=== PATIENT | male | born 1940 | race Caucasian/White ===

== ENCOUNTER 2017-12-02 07:25 | Inpatient (IN) ==
[2017-12-02] MEDS ORDERED: Chlorhexidine Gluconate 2% 1 Pack (2 Cloths) TOPICAL ONE (08:00)
[2017-12-02] MEDS ORDERED: Metoprolol Tartrate 25 MG Tablet PO ONE (08:00)
[2017-12-02] MEDS ORDERED: Sodium Chlor 0.9% Inj 500 ML IV.SIG SCH (08:00)
[2017-12-02] MEDS ORDERED: Chlorhexidine Gluconate 2% 1 Pack (2 Cloths) TOPICAL SCH (08:15)
[2017-12-02] MEDS ORDERED: Mupirocin 2% Nasal Oint Topical Syringe EACH NARE SCH (08:15)
[2017-12-02] MEDS ORDERED: Sod Chloride 0.9% Inj 1,000 ML IV.CONT SCH (08:15)
[2017-12-02] MEDS ORDERED: Aspirin 325 MG Tablet PO SCH (08:15)
[2017-12-02 08:57] LABS: Baso % (Auto) 0.7 % (0.0-2.0); Eos # (Auto) 0.4 th/mm3 (0.0-0.4); Eos % (Auto) 6.1 % (0.0-4.0); Hematocrit 36.1 % (39.0-51.0); Hemoglobin 12.3 gm/dL (13.0-17.0); Lymph # (Auto) 1.2 th/mm3 (1.0-4.8); Lymph % (Auto) 18.2 % (9.0-44.0); Mean Corpuscular Hemoglobin 30.7 pg (27.0-34.0); Mean Corpuscular Volume 90.3 fL (80.0-100.0); Mean Platelet Volume 7.5 fL (7.0-11.0); Mono # (Auto) 0.4 th/mm3 (0.0-0.9); Mono % (Auto) 5.6 % (0.0-8.0); Neut # (Auto) 4.5 th/mm3 (1.8-7.7); Neut % (Auto) 69.4 % (16.0-70.0); Platelet Count 255 th/mm3 (150-450); Red Cell Distribution Width 13.6 % (11.6-17.2); White Blood Count 6.5 th/mm3 (4.0-11.0)
[2017-12-02 09:07] LABS: Activated Partial Thrombo Time 22.6 sec (24.3-30.1); Prothrombin Time 10.6 sec (9.8-11.6)
[2017-12-02 09:18] LABS: Calcium 8.3 mg/dL (8.5-10.1); Carbon Dioxide 22.3 meq/L (21.0-32.0); Potassium 3.9 meq/L (3.5-5.1)
[2017-12-02] MEDS ORDERED: Iohexol 350 MG/ML 100 ML Vial (for Cath Lab) IVCONTRAST ONE (09:46)
[2017-12-02] MEDS ORDERED: Iohexol 350 MG/ML 50 ML Vial (for Cath Lab) IVCONTRAST ONE (09:46)
--- NOTE | 2017-12-02 10:22 | P.PNCV ---
- Note Subjective/Hospital Course: 77/ male seen by both Dr Montelongo and Dr Lazaro as an outpt , who presented with > 6 month symptoms of progressive dyspnea with minimal exertion. Echo revealed moderate to severe with mild LV dysfunction. Cardiac cath demonstrated multivessel disease affecting LAD territory , where he underwent PCI with VALENTINA x 2 , pt was also found to have sinus bradycardia with long WA interval with left anterior fascicular block with RBBB. He then underwent EP study by Dr Lyons . Due to pt fragility and significant medical comorbidities, he was recommended for TAVR procedure IMPLANTED HARDWARE 11/23 The permanent pacemaker is a St ever. Model # MS2306, serial number [id number]. The right atrial pacing and sensing lead is a St Ever model number 2088TC-52, serial number [id number]. The right ventricular pacing and sensing lead is a St Ever model number 2088TC- 58, serial number [id number]. PMH: DM, , HLP. 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 Differential Comment Auto diff final PT 10.6 INR 1.0 APTT 22.6 L Sodium 140 Potassium 3.9 Chloride 109 H Carbon Dioxide 22.3 Anion Gap 9 BUN 21 H Creatinine 1.37 H Estimated GFR 50 L Random Glucose 158 H Calcium 8.3 L Blood Type Antibody Screen MTS Gel Crossmatch 12/02/17 08:30 WBC RBC Hgb Hct MCV MCH MCHC RDW Plt Count MPV Neut % (Auto) Lymph % (Auto) [place] % (Auto) Eos % (Auto) Baso % (Auto) Neut # (Auto) Lymph # (Auto) [place] # (Auto) Eos # (Auto) Baso # (Auto) WBC Differential Differential Comment PT INR APTT Sodium Potassium Chloride Carbon Dioxide Anion Gap BUN Creatinine Estimated GFR Random Glucose Calcium Blood Type O Negative Antibody Screen Negative MTS Gel Crossmatch See Detail Result Diagrams: 12/02/17 08:15 12/02/17 08:15
[2017-12-02] MEDS ORDERED: Lidocaine PF 1% Inj 5 ML Syringe OTHER ONE (11:28)
[2017-12-02] MEDS ORDERED: Glycopyrrolate Inj 1 MG/5 ML Syringe IV.PUSH ONE (11:28)
[2017-12-02] MEDS ORDERED: Phenylephrine/NS 1000 MCG/10ML Syringe IV.PUSH ONE (11:28)
[2017-12-02] MEDS ORDERED: Neostigmine Inj 5 MG/5 ML Syringe IV.PUSH ONE (11:28)
[2017-12-02] MEDS ORDERED: Sodium Chlor 0.9% Inj 100 ML IV.CONT ONE (11:28)
[2017-12-02] MEDS ORDERED: Sodium Chlor 0.9% Inj 250 ML IV.CONT ONE (11:28)
[2017-12-02] MEDS ORDERED: Lidocaine 2% 100 MG/5 ML Syringe IV.PUSH ONE (11:28)
[2017-12-02] MEDS: ceFAZolin 2 GM Premix Inj 2 GM/50 ML PIGGYBACK IV.SIG SCH ×2 (11:35→12:31)
[2017-12-02] MEDS ORDERED: Iohexol 300 MG/ML 50 ML Vial (for Rad Diag) IVCONTRAST ONE ×2 (13:14→14:45)
[2017-12-02] MEDS ORDERED: Atropine Inj 1 MG/ML Vial IV.PUSH PRN (13:16)
[2017-12-02] MEDS ORDERED: Acetaminophen 325 MG Tablet PO PRN (13:16)
[2017-12-02] MEDS ORDERED: Morphine Sulfate Inj 2 MG/ML Vial IV.PUSH PRN (13:16)
[2017-12-02] MEDS ORDERED: Benzocaine/Menthol 15 MG/3.6 MG SF Lozenge BUCCAL PRN (13:16)
--- NOTE | 2017-12-02 13:29 | P.OP ---
Date of procedure: 12/02/17 Anesthesia: GETA Surgeon: Jules Lazaro MD Operation and Findings: PREOPERATIVE DIAGNOSIS: 1. Severe Symptomatic Aortic stenosis. 2. CHF 3. Mild aortic Insufficiency POSTOPERATIVE DIAGNOSIS: Same OPERATION PERFORMED: 1. Transcatheter Aortic Valve Replacement (TAVR) with an Monroy 29 mm Tamiko 3 Tissue Valve. 2. Balloon Aortic Valvuloplasty 3. Aortogram. 4. Percutaneous left femoral Vein Access and Bilateral Common Femoral Artery Access 5. Perclose closure of right Common Femoral artery. 6. Vascade closure of left Common Femoral artery and vein. 7. Fluoroscopy SURGEON: Jules Lazaro MD CO-SURGEON: Blayne Petit MD CENTRAL OFFICE REPAIRER SUPERVISOR SURGEON: Noé Green MD GROMMET MACHINE OPERATOR: MARINA Colvin MD ANESTHESIA: GETA PROCEDURE: The risks, benefits, complications, treatment options, and expected outcomes were discussed with the patient. The possibilities of reaction to medication, pulmonary aspiration, perforation of viscus, bleeding, recurrent infection, the need for additional procedures, failure to diagnose a condition, and creating a complication requiring transfusion or operation were discussed with the patient. The patient concurred with the proposed plan, giving informed consent. The site of surgery properly noted/marked. The patient was taken to the hybrid operating room and the procedure verified as Transcatheter Aortic Valve Replacement. A Time Out was held and the above information confirmed. Standard monitoring lines and Tyler catheter were placed. General anesthesia was induced. The patient was prepped and draped in a sterile fashion. Initially, the left femoral arterial and venous access was acquired using a Seldinger percutaneous technique. The details of this procedure were dictated under separate note by cardiology. Once a pigtail was positioned in the aortic annulus and a temporary transvenous pacemaker wire was placed in the right ventricular apex and tested, the right femoral artery was accessed using a needle followed by a guidewire under fluoroscopic guidance. The patient was heparinized and Perclose devices deployed for later closure. Serial dilators were used to dilate the left femoral artery to 16 [place] caliber. The Monroy sheath was then inserted into the external iliac artery up to the distal abdominal aorta. Arch aortography was performed to define the implant view. A balloon aortic valvuloplasty was then performed using a 25 x 4 balloon with rapid pacing. A 29 Monroy Tamiko 3 transcatheter aortic valve was then positioned in the annulus and deployed with the patient being rapidly paced. Following deployment, the valve apparatus was withdrawn and arch aortography and ELISE were performed to assess the valve. The valve had no perivalvular leak. Gradients were then measured and the sheath was removed while securing the Perclose sutures for hemostasis. Protamine was administered. The left arterial and Venous access sites were closed using the Vascade device. Sterile dressings were placed. At the end of the operation, all sponge, instruments, and needle counts were correct. The patient was transferred to the CVICU in stable condition. Findings: No PVL Implants: 29 Tamiko 3 tissue valve Complications: None Disposition: to CVICU in stable condition
--- NOTE | 2017-12-02 13:29 | P.HPCA ---
History of Present Illness Primary Care Physician: No Primary Care Physician History of Present Illness: This is a 77-year-old male with past medical history of diabetes mellitus, hypertension, hyperlipidemia, and coronary artery disease. Patient states he has had symptoms of progressive dyspnea over the course of the last 6 months. Patient underwent diagnostic coronary angiography with percutaneous coronary intervention using drug-eluting stent to the left anterior descending coronary artery. Transthoracic echocardiogram revealed severe aortic valve stenosis. Patient was referred for consideration of surgical aortic valve replacement but felt to be high surgical risk. Patient was referred for transcatheter aortic valve replacement. Patient is now admitted for elective procedure. - Diagnosis (1) Severe aortic valve stenosis (2) Status post transcatheter aortic valve replacement (TAVR) using bioprosthesis (3) Acute on chronic diastolic (congestive) heart failure Inpatient Certification: I certify that the inpatient services were ordered in accordance with Medicare regulations governing the order. This includes certification that hospital inpatient services are reasonable and necessary and in the case of services not specified as inpatient-only under 42 CFR 419.22(n), that they are appropriately provided as inpatient services in accordance to with the 2-midnight benchmark under 43 CFR 412.3(e) Estimated Total Length of Stay (Days): 2 Plans for Post Hospital Care: Home Review of Systems All other systems reviewed negative except as stated in HPI PMFSH - History History Provided By: Patient - Medical History Medical History: Medical History (Last Updated 12/02/17 @ 13:21 by Blayne Petit MD) Chronic diastolic (congestive) heart failure Diabetes Severe aortic valve stenosis CAD (coronary artery disease) CHF (congestive heart failure) COPD (chronic obstructive pulmonary disease) Dyslipidemia HTN (hypertension) Hypothyroid SOB (shortness of breath) - Surgical History Surgical History: Surgical History (Last Updated 12/02/17 @ 08:26 by Janna Sánchez) Stented coronary artery - Tobacco History Second Hand Smoke Exposure: No Smoking Status: Never smoker - Alcohol History How Often Do You Have a Drink Containing Alcohol: Never - Substance Use History Substance History: No History of Abuse Medications and Allergies Active Medications: Active Medications Acetaminophen (Tylenol) 650 mg PO Q4H PRN PRN Reason: PAIN SCALE 1 TO 2 Stop: 12/03/17 13:15 Aspirin (Aspirin) 325 mg PO BIOMETRICIAN [facility] Stop: 12/05/17 08:06 Last Admin: 12/02/17 08:38 Dose: 325 mg Aspirin (Aspirin Chew) 81 mg PO DAILY [facility] Atropine Sulfate (Atropine Inj) 0.5 mg IV.PUSH UNSCH PRN PRN Reason: VAGAL REPONSE Stop: 12/03/17 13:15 Benzocaine/Menthol (Cepacol Max Strength) 1 lozenge BUCCAL Q3H PRN PRN Reason: SORE THROAT Stop: 12/03/17 13:15 Chlorhexidine Gluconate (Chlorhexidine 2% Cloth) 3 pack TOPICAL BIOMETRICIAN [facility] Stop: 12/05/17 08:06 Clopidogrel Bisulfate (Plavix) 600 mg PO ONCE ONE Stop: 12/02/17 13:17 Clopidogrel Bisulfate (Plavix) 75 mg PO DAILY [facility] Ferrous Sulfate (Ferosul) 325 mg PO DAILY [facility] Furosemide (Lasix Inj) 20 mg IV.PUSH ONCE ONE Stop: 12/02/17 13:17 Lactated Ringer's (Lr 1000 Ml Inj) 1,000 mls @ 30 mls/hr IV.SIG .Q24H [facility] Stop: 12/03/17 07:59 Sodium Chloride (Ns Inj) 500 mls @ 30 mls/hr IV.SIG .Q10H [facility] Cefazolin Sodium/Dextrose (Ancef 2 Gm Premix Inj) 2 gm in 50 mls @ 100 mls/hr IV.SIG ONCE [facility] Stop: 12/05/17 08:06 Last Infusion: 12/02/17 11:36 Dose: Infused Sodium Chloride (Ns Inj) 1,000 mls @ 125 mls/hr IV.CONT .Q8H [facility] Iohexol (Omnipaque 300 Inj (Rad Diag)) 120 ml IVCONTRAST ONCE ONE Stop: 12/02/17 13:15 Miscellaneous Information (Misc Information) 0 each OTHER STAT STA Stop: 12/02/17 13:17 Morphine Sulfate (Morphine Inj) 2 mg IV.PUSH Q30M PRN PRN Reason: BREAKTHROUGH PAIN Mupirocin (Bactroban 2% Nasal Oint) 1 applicatio EACH NARE BIOMETRICIAN [facility] Stop: 12/05/17 08:06 Oxycodone/Acetaminophen (Percocet 5/325 Mg) 1 tab PO Q6H PRN PRN Reason: PAIN SCALE 3 TO 5 Povidone Iodine (Betadine 5% Antisepsis Kit) 1 applicatio TOPICAL BIOMETRICIAN [facility] Stop: 12/05/17 08:06 Allergies Allergy/AdvReac Type Severity Reaction Status Date / Time No Known Allergies Allergy Verified 12/02/17 08:26 Home Medications Medication Instructions Recorded Confirmed Type amlodipine 5 mg PO DAILY 11/23/17 12/02/17 History budesonide-formoterol [Symbicort] 2 puff INHALATION BID 11/23/17 11/23/17 History cilostazol 100 mg PO BID 11/23/17 12/02/17 History clopidogrel [Plavix] 75 mg PO DAILY 11/23/17 12/02/17 History gabapentin 300 mg PO TID 11/23/17 11/23/17 History insulin detemir U-100 [Levemir unit SUB-Q QPM 11/23/17 11/23/17 History FlexTouch U-100 Insuln] insulin lispro [Humalog KwikPen unit SUB-Q QAM 11/23/17 11/23/17 History Insulin] levothyroxine 75 mcg PO DAILY 11/23/17 12/02/17 History losartan 100 mg PO DAILY 11/23/17 11/23/17 History metformin 1,000 mg PO BID 11/23/17 12/02/17 History furosemide [Lasix] 40 mg PO BID 12/02/17 12/02/17 History pantoprazole [Protonix] 40 mg PO DAILY 12/02/17 12/02/17 History Exam Vital signs: Vital Signs 12/02/17 08:20 Temperature 97.8 F Pulse Rate 67 Respiratory Rate 16 Blood Pressure 148/86 H Pulse Oximetry 97 Intake & Output 12/01/17 12/02/17 12/02/17 18:59 06:59 18:59 Intake Total 50 / 50 Balance 50 / 50 Weight 98.7 kg Intake: IV 50 / 50 Ancef 2 GM Premix Inj 2 gm In 50 / 50 50 ml @ 100 mls/hr IV.SIG ONCE [facility] Rx#:[id number] Other: Weight On Admission 98.7 kg - Constitutional no acute distress - Routine HEENT Exam Head: Present: normocephalic Eye: Present: EOMI, PERRL ENT: Present: mucous membranes moist - Routine Neck Exam Absent: JVD - Routine Cardiovascular Exam Present: RRR, murmur - Routine Abdominal Exam Present: normoactive bowel sounds - Routine Extremities Exam Absent: edema - Routine Neurological Exam Present: oriented X3, CN II-XII intact. Absent: sensory deficit, motor deficit Results 12/02/17 08:15 12/02/17 08:15 Coagulation 12/02/17 Range/Units 08:15 PT 10.6 (9.8-11.6) sec APTT 22.6 L (24.3-30.1) sec CBC 12/02/17 Range/Units 08:15 WBC 6.5 (4.0-11.0) th/mm3 RBC 4.00 L (4.50-5.90) mil/mm3 Hgb 12.3 L (13.0-17.0) gm/dL Hct 36.1 L (39.0-51.0) % Plt Count 255 (150-450) th/mm3 Neut # (Auto) 4.5 (1.8-7.7) th/mm3 Lymph # (Auto) 1.2 (1.0-4.8) th/mm3 [place] # (Auto) 0.4 (0.0-0.9) th/mm3 Eos # (Auto) 0.4 (0.0-0.4) th/mm3 Baso # (Auto) 0.0 (0.0-0.2) th/mm3 Comprehensive Metabolic Panel 12/02/17 Range/Units 08:15 Sodium 140 (136-145) meq/L Potassium 3.9 (3.5-5.1) meq/L Chloride 109 H (98-107) meq/L Carbon Dioxide 22.3 (21.0-32.0) meq/L BUN 21 H (7-18) mg/dL Creatinine 1.37 H (0.60-1.30) mg/dL Calcium 8.3 L (8.5-10.1) mg/dL Intake and Output 12/01/17 12/02/17 12/02/17 22:59 06:59 14:59 Intake Total 50 / 50 Balance 50 / 50 Intake: IV 50 / 50 Ancef 2 GM Premix Inj 2 gm In 50 / 50 50 ml @ 100 mls/hr IV.SIG ONCE FABIAN Rx#:[id number] Other: Weight 98.7 kg Weight On Admission 98.7 kg Patient Weight 12/03/17 06:59 Weight 98.7 kg EKG interpretations - VA, pacemaker, normal Pacemaker: ventricular pacing w/capture (except when refractory) Caprini VTE Risk Assessment Caprini VTE Risk Assessment: Moderate/High Risk (score >= 2) Caprini Risk Assessment Model: Point Value = 1 Point Value = 2 Point Value = 3 Point Value = 5 Age 41-60 Minor surgery BMI > 25 kg/m2 Swollen legs Varicose veins or History of unexplained or recurrent spontaneous Oral contraceptives or hormone replacement Sepsis (< 1 month) Serious lung disease, including pneumonia (< 1 month) Abnormal pulmonary function Acute myocardial infarction Congestive heart failure (< 1 month) History of inflammatory bowel disease Medical patient at bed rest Age 61-74 Arthroscopic surgery Major open surgery (> 45 min) Laparoscopic surgery (> 45 min) Malignancy Confined to bed (> 72 hours) Immobilizing plaster cast Central venous access Age >= 75 History of VTE Family history of VTE Factor V Leiden Prothrombin [id number] Lupus anticoagulant Anticardiolipin antibodies Elevated serum homocysteine Heparin-induced thrombocytopenia Other congenital or acquired thrombophilia Stroke (< 1 month) Elective arthroplasty Hip, pelvis, or leg fracture Acute spinal cord injury (< 1 month) Prophylaxis Regimen: Total Risk Factor Score Risk Level Prophylaxis Regimen 0-1 Low Early ambulation 2 Moderate Order ONE of the following: *Sequential Compression Device (SCD) *Heparin 5000 units SQ BID 3-4 Higher Order ONE of the following medications: *Heparin 5000 units SQ TID *Enoxaparin/Lovenox 40 mg SQ daily (WT < 150 kg, CrCl > 30 mL/min) *Enoxaparin/Lovenox 30 mg SQ daily (WT < 150 kg, CrCl > 10-29 mL/min) *Enoxaparin/Lovenox 30 mg SQ BID (WT < 150 kg, CrCl > 30 mL/min) AND/OR *Sequential Compression Device (SCD) 5 or more Highest Order ONE of the following medications: *Heparin 5000 units SQ TID (Preferred with Epidurals) *Enoxaparin/Lovenox 40 mg SQ daily (WT < 150 kg, CrCl > 30 mL/min) *Enoxaparin/Lovenox 30 mg SQ daily (WT < 150 kg, CrCl > 10-29 mL/min) *Enoxaparin/Lovenox 30 mg SQ BID (WT < 150 kg, CrCl > 30 mL/min) AND *Sequential Compression Device (SCD) Assessment and Plan - Assessment (1) Severe aortic valve stenosis Code(s): I35.0 - Nonrheumatic aortic (valve) stenosis Status: Acute (2) Status post transcatheter aortic valve replacement (TAVR) using bioprosthesis Code(s): Z95.3 - Presence of xenogenic heart valve Status: Acute (3) Acute on chronic diastolic (congestive) heart failure Code(s): I50.33 - Acute on chronic diastolic (congestive) heart failure Status : Acute Plan: Diuretic therapy - Plan This is a 77-year-old male with history of coronary artery disease status post recent percutaneous coronary intervention, recent permanent pacemaker, and severe aortic valve stenosis. Patient is admitted today for elective transcatheter aortic valve replacement. Preoperative workup: STS score 8% [place] [employer] functional class III symptoms BMI 29.9 Frailty 2/ Electrocardiogram shows sinus rhythm with first-degree AV block and right bundle branch block and left anterior fascicular block status post permanent pacemaker Pulmonary function testing performed on October 27, 2017 shows mild to moderate obstructive and salutatory defect with an FEV1 of 1.95 Transthoracic echocardiogram from October 27, 2017 shows peak jet velocity 4.4 m/ s, mean gradient 43 mmHg, calculated valve area 0.65 cm, ejection fraction 60- 65%, trace aortic insufficiency, trace mitral regurgitation, trace tricuspid regurgitation Cardiac catheterization from July 24, 2017 shows severe proximal extending into the mid left anterior descending coronary stenosis status post 2 drug-eluting stents Computed tomography October 26, 2017 reveals short annulus diameter 26.6 mm, long annulus diameter 34.5 mm annular area of 721.2 mm square, sinus of Valsalva diameter 47.0 mm, sinotubular junction diameter 39.5 mm, left coronary height 18.8 mm, right coronary height 25.1 mm with an implant angle right anterior oblique 3 and cranial 1, minimal luminal diameter in the right iliac system 10.0 mm and left system 10.5 mm Is a 77-year-old gentleman with severe aortic valve stenosis with 8% and STS score and felt to be high surgical risk for surgical aortic valve replacement. Patient is now scheduled for transcatheter valve replacement using a Monroy CP and S3 29 mm bioprosthetic aortic valve from a right common femoral arterial approach H&P: Quality - VTE Deep Vein Thrombosis/Pulmonary Embolism Present on Admission: No
[2017-12-02] MEDS ORDERED: Heparin 10,000 UNITS/10 ML Vial (for IV use) ONE (13:54)
[2017-12-02] MEDS ORDERED: Protamine Sulfate Inj 50 MG/5 ML Vial ONE (13:54)
[2017-12-02] MEDS ORDERED: fentaNYL Citrate Inj 100 MCG/2 ML Ampul ONE (13:58)
--- NOTE | 2017-12-02 14:05 | P.PCN ---
Date of procedure: 12/02/17 Pre-op diagnosis: severe aortic stenosis Procedure: Procedure: Transesophageal Echocardiography Diagnosis: Severe aortic stenosis Indications: Perioperative planning for transcatheter aortic valve replacement Consent: Obtained Anesthesia: General endotracheal anesthesia Description of the Procedure: The patient was sedated and mechanically ventilated. The echo probe was inserted easily and without resistance. At the conclusion of the procedure, the echo probe was removed. Please see detailed echocardiogram report for formal findings. Preliminary Findings (not confirmed): Pre-procedure: 1) Grossly normal LV function 2) severe aortic stenosis 3) mild aortic regurgitation 4) no evidence of intra-atrial shunting by color flow Doppler 5) no pericardial effusion Post-procedure: 1) s/p successful transcatheter aortic valve replacement 2) no evidence of bioprosthetic valve stenosis 3) no perivalvular leak 4) no pericardial effusion The patient tolerated the procedure well with no hemodynamic instability. There were no immediate complications noted. There was minimal EBL. I personally performed the procedure.
[2017-12-02] MEDS ORDERED: Magnesium Sulfate Inj 4 GM in Sodium Chlor 0.9% Inj 92 ML IV.SIG PRN (14:13)
[2017-12-02] MEDS ORDERED: Potassium Chlor 40 mEq Premix 40 MEQ/100 ML PIGGYBACK IV.SIG PRN ×2 (14:13)
[2017-12-02] MEDS ORDERED: Magnesium Oxide 400 MG Tablet PO PRN (14:13)
[2017-12-02] MEDS ORDERED: Magnesium Sulfate Inj 2 GM in Sodium Chlor 0.9% Inj 96 ML IV.SIG PRN (14:13)
[2017-12-02] MEDS ORDERED: Potassium Chloride 25 MEQ Effervescent Tablet PO PRN (14:13)
[2017-12-02] MEDS ORDERED: Potassium Chlor 20 mEq Premix 20 MEQ/100 ML PIGGYBACK IV.SIG PRN ×2 (14:13)
[2017-12-02] MEDS ORDERED: Potassium Phosphate Inj 30 MMOL in Sodium Chlor 0.9% Inj 250 ML IV.SIG PRN (14:13)
[2017-12-02] MEDS ORDERED: Sodium Phosphate Inj 30 MMOL in Sodium Chlor 0.9% Inj 250 ML IV.SIG PRN (14:13)
[2017-12-02] MEDS ORDERED: Potassium Phosphate 500 MG Soluble Tablet PO PRN ×2 (14:13)
--- NOTE | 2017-12-02 14:15 | P.CONCC ---
History of Present Illness Service: Critical Care Medicine Consult date: 12/02/17 Requesting Physician: Noé Green Reason for Consult: perioperative management of medical comorbidities Primary Care Provider: No Primary Care Physician Family Provider: No Primary Care Physician History of Present Illness: This is a 77-year-old male with severe aortic stenosis who presents for transcatheter aortic valve replacement. He underwent uncomplicated placement. He arrives to the CVICU extubated in stable condition. He is arousing from anesthesia. Due to his somnolence arousing from anesthesia complete review of systems is unobtainable. Limited review of systems is negative for chest pain, shortness of breath, sore throat, nausea, vomiting, headache. Review of Systems unobtainable due to mental status (Arousing from anesthesia) PMFSH - History History Provided By: Patient - Medical History Medical History: Medical History (Last Reviewed 12/02/17 @ 14:08 by Ed Ramirez MD) Chronic diastolic (congestive) heart failure Diabetes Severe aortic valve stenosis CAD (coronary artery disease) CHF (congestive heart failure) COPD (chronic obstructive pulmonary disease) Dyslipidemia HTN (hypertension) Hypothyroid SOB (shortness of breath) - Surgical History Surgical History: Surgical History (Last Reviewed 12/02/17 @ 14:08 by Ed Ramirez MD) Stented coronary artery - Family History Family History: Family History (Last Updated 12/02/17 @ 14:08 by Ed Ramirez MD) Other Family history non-contributory - Tobacco History Second Hand Smoke Exposure: No Smoking Status: Never smoker - Alcohol History How Often Do You Have a Drink Containing Alcohol: Never - Substance Use History Substance History: No History of Abuse Medications and Allergies Active Medications: Active Medications Acetaminophen (Tylenol) 650 mg PO Q4H PRN PRN Reason: PAIN SCALE 1 TO 2 Stop: 12/03/17 13:15 Aspirin (Aspirin) 325 mg PO [facility] [employer] Stop: 12/05/17 08:06 Last Admin: 12/02/17 08:38 Dose: 325 mg Aspirin (Aspirin Chew) 81 mg PO DAILY [facility] Atropine Sulfate (Atropine Inj) 0.5 mg IV.PUSH UNSCH PRN PRN Reason: VAGAL REPONSE Stop: 12/03/17 13:15 Benzocaine/Menthol (Cepacol Max Strength) 1 lozenge BUCCAL Q3H PRN PRN Reason: SORE THROAT Stop: 12/03/17 13:15 Chlorhexidine Gluconate (Chlorhexidine 2% Cloth) 3 pack TOPICAL [facility] [employer]IST F[facility]IAN Stop: 12/05/17 08:06 Clopidogrel Bisulfate (Plavix) 600 mg PO ONCE ONE Stop: 12/02/17 13:17 Clopidogrel Bisulfate (Plavix) 75 mg PO DAILY [facility] Ferrous Sulfate (Ferosul) 325 mg PO DAILY [facility] Furosemide (Lasix Inj) 20 mg IV.PUSH ONCE ONE Stop: 12/02/17 13:17 Lactated Ringer's (Lr 1000 Ml Inj) 1,000 mls @ 30 mls/hr IV.SIG .Q24H F[facility] Stop: 12/03/17 07:59 Sodium Chloride (Ns Inj) 500 mls @ 30 mls/hr IV.SIG .Q10H [facility] Cefazolin Sodium/Dextrose (Ancef 2 Gm Premix Inj) 2 gm in 50 mls @ 100 mls/hr IV.SIG ONCE [facility] Stop: 12/05/17 08:06 Last Infusion: 12/02/17 11:36 Dose: Infused Sodium Chloride (Ns Inj) 1,000 mls @ 125 mls/hr IV.CONT .Q8H [facility] Iohexol (Omnipaque 300 Inj (Rad Diag)) 120 ml IVCONTRAST ONCE ONE Stop: 12/02/17 13:15 Miscellaneous Information (Misc Information) 0 each OTHER STAT STA Stop: 12/02/17 13:17 Morphine Sulfate (Morphine Inj) 2 mg IV.PUSH Q30M PRN PRN Reason: BREAKTHROUGH PAIN Mupirocin (Bactroban 2% Nasal Oint) 1 applicatio EACH NARE [facility]IST [facility] Stop: 12/05/17 08:06 Oxycodone/Acetaminophen (Percocet 5/325 Mg) 1 tab PO Q6H PRN PRN Reason: PAIN SCALE 3 TO 5 Povidone Iodine (Betadine 5% Antisepsis Kit) 1 applicatio TOPICAL [facility] [employer] Stop: 12/05/17 08:06 Allergies Allergy/AdvReac Type Severity Reaction Status Date / Time No Known Allergies Allergy Verified 12/02/17 08:26 Home Medications Medication Instructions Recorded Confirmed Type amlodipine 5 mg PO DAILY 11/23/17 12/02/17 History budesonide-formoterol [Symbicort] 2 puff INHALATION BID 11/23/17 11/23/17 History cilostazol 100 mg PO BID 11/23/17 12/02/17 History clopidogrel [Plavix] 75 mg PO DAILY 11/23/17 12/02/17 History gabapentin 300 mg PO TID 11/23/17 11/23/17 History insulin detemir U-100 [Levemir unit SUB-Q QPM 11/23/17 11/23/17 History FlexTouch U-100 Insuln] insulin lispro [Humalog KwikPen unit SUB-Q QAM 11/23/17 11/23/17 History Insulin] levothyroxine 75 mcg PO DAILY 11/23/17 12/02/17 History losartan 100 mg PO DAILY 11/23/17 11/23/17 History metformin 1,000 mg PO BID 11/23/17 12/02/17 History furosemide [Lasix] 40 mg PO BID 12/02/17 12/02/17 History pantoprazole [Protonix] 40 mg PO DAILY 12/02/17 12/02/17 History Physical Exam Vital signs: Vital Signs 12/02/17 08:20 Temperature 36.6 C Pulse Rate 67 Respiratory Rate 16 Blood Pressure 148/86 H Pulse Oximetry 97 Intake & Output 12/01/17 12/02/17 12/02/17 18:59 06:59 18:59 Intake Total 1450 / 1450 Output Total 80 / 80 Balance 1370 / 1370 Weight 98.7 kg Intake: IV 50 / 50 Ancef 2 GM Premix Inj 2 gm In 50 / 50 50 ml @ 100 mls/hr IV.SIG ONCE [facility] Rx#:[id number] Anesthesia Amount 1400 / 1400 Output: Estimated Blood Loss 20 / 20 Urine Amount (Catheter) 60 / 60 Indwelling Temp Sensing 60 / 60 Catheter Other: Weight On Admission 98.7 kg Narrative: GENERAL: Frail elderly male, lying in bed, arousing from anesthesia HEENT: Normocephalic. Atraumatic. Pupils equal, round, reactive, conjugate. Mucous membranes are moist NECK: Trachea is midline. There is no JVD. right IJ introducer sheath in place , site is clean and dry, dressing intact. CHEST: unlabored. equal chest rise. nc o2. CARDIOVASCULAR: normal rate, regular rhythm. Intermittent paced beats. ABDOMEN: Soft, nontender, nondistended. No guarding. MUSCULOSKELETAL: Pulses 2+. No peripheral edema. bilateral groin sites are clean and dry, no evidence of hematoma, dressing intact. distal LE pulses are Dopplerable. NEUROLOGICAL: RASS -2. Arousing from anesthesia. follows commands. moves all extremities. no focal deficits. - Urinary Catheter Management Indwelling Temp Sensing Catheter Cath placed during this visit: yes Reason for continuing: Hourly intake/output Insertion date: 12/02/17 Insertion time: 11:50 Assessment and Plan - Assessment and Plan Plan: Assessment: 77-year-old male postop day 0 status post transcatheter aortic valve replacement. Admit ICU for close monitoring. S/p TAVR today via groin access - anticoagulation per certified executive chef - mivf - close uop monitoring - frequent neurovascular checks - frequent groin checks - OOB after flat time Hypertension - goal sbp < 180 - add back antihypertensives as needed Congestive Heart Failure secondary to valvulopathy - mivf today - may need diuresis beginning after POD 1 CAD - ASA Hyperlipidemia - restart home statin COPD - prn nebs - wean o2 for goal spo2 > 90% - oob after flat time - aggressive pulmonary toilet. Hypothyroidism - restart home synthroid Diabetes - SSI advance diet after flat time SCDs AM CBC, BMP Critical care medicine will continue to follow while patient remains in the CVICU.
[2017-12-02] MEDS ORDERED: Amiodarone Inj 150 MG in Dextrose 5% in Water Inj 97 ML IV.SIG ONE ×4 (14:27→22:47)
--- NOTE | 2017-12-02 14:32 | P.OP ---
- Preoperative Diagnosis (1) Severe aortic valve stenosis - Postoperative Diagnosis (1) Status post transcatheter aortic valve replacement (TAVR) using bioprosthesis (2) Acute on chronic diastolic (congestive) heart failure Date of procedure: 12/02/17 Procedure: Procedure performed: 1. Fluoroscopy with interpretation 2. Transesophageal echocardiogram 3. Transvenous temporary pacemaker placement 4. Ascending aortography 5. Left heart catheterization 6. Aortic valvuloplasty 7. Transcatheter aortic valve replacement Methods: Risks, benefits, and alternatives were discussed with the patient. Patient understood and consented to proceed. Patient was brought into the operating room and placed on the operating table. Both groins were prepped and draped. The chest was prepped. The left groin was anesthetized with 2% lidocaine. The left common femoral artery was cannulated and a 5 [place] 11 cm sheath was placed without difficulty. Left femoral vein was accessed and a 5 [place] 11 cm sheath was placed without difficulty. Right common femoral artery was cannulated and a micropuncture sheath was advanced into the right common femoral artery. Digital subtraction angiography confirmed intraluminal placement. Heparin was administered throughout the entire procedure to maintain appropriate anticoagulation Transesophageal echocardiogram: See separate report Transvenous temporary pacemaker placement: Right internal jugular vein access was obtained and a 5 [place] balloontipped temporary transvenous pacemaker was advanced to the right ventricular apex under fluoroscopic guidance. Appropriate capture was confirmed Ascending aortography: 5 [place] angled pigtail catheter was advanced to the ascending aorta into the noncoronary cusp. Ascending aortography revealed 3 well-visualized coronary costs and parallel. Left heart catheterization: 6 [place] AL-1 catheter was advanced to the descending aorta a 0.035 inch 260 cm Amplatz superstiff wire was then navigated across the aortic valve without difficulty. The AL-1 catheter was advanced into the left ventricle. A 0.035 inch 260 cm standard J-wire was advanced to the left ventricular apex. The AL- 1 catheter removed. A pigtail catheter was then advanced over the wire into the left ventricular apex and the J-wire removed. A 0.035 inch 260 cm Brain Sentrytronic Confida wire was advanced to the left ventricular apex and the pigtail catheter removed. Aortic valvuloplasty: A 26 mm [place] valvuloplasty balloon was advanced over the Confida wire to the level of the aortic valve. Under rapid pacing at 180 bpm aortic valvuloplasty was performed. Repeat transesophageal echocardiogram now showed moderate aortic insufficiency. Balloon was removed. Transcatheter aortic valve replacement: A 29 mm [place] Tamiko S3 valve was then prepped and advanced over the wire across the [place] aortic valve. Under rapid pacing the bioprosthetic valve was then deployed repeat transesophageal echocardiogram revealed appropriate placement with no perivalvular leak. Conclusions: 1. Successful transcatheter aortic valve replacement using a [place] Tamiko S3 bioprosthetic valve 2. Successful aortic valvuloplasty Plan: Patient will be monitored closely for any postprocedural complications. We will obtain a limited transthoracic echocardiogram to evaluate for valve function. Patient will be transferred to the cardiovascular intensive care unit. Aspirin and Plavix will be initiated. Surgeon: Blayne Petit MD Stuntman: Jules Lazaro Stuntman: Interventional Cardiology Assist: Noé Green MD
--- NOTE | 2017-12-02 14:52 | ECHRPT ---
Indication: CONCLUSIONS Normal left ventricular size. Mild concentric left ventricular hypertrophy. The left ventricular systolic function is low normal with an estimated ejection fraction in the rang e of 50- 55%. Mild thickening of the mitral valve leaflets. Trace mitral valve regurgitation. Trileaflet aortic valve. Aortic valve sclerosis is present. Diffuse calcification of the aortic valve. Mild aortic valve regurgitation. Severe aortic valve stenosis. Status post transcatheter aortic valve replacement. Mild thickening of the tricuspid valve leaflets. There is mild tricuspid valve regurgitation. BP: / HR: Rhythm: Technical Quality: Medications Complications Proc. Components FINDINGS LEFT VENTRICLE Normal left ventricular size. Mild concentric left ventricular hypertrophy. The left ventricular systolic function is low normal with an estimated ejection fraction in the rang e of 50- 55%. RIGHT VENTRICLE Normal right ventricular size and systolic function. LEFT ATRIUM The left atrial size is normal. RIGHT ATRIUM The right atrial size is normal. ATRIAL APPENDAGES Normal left atrial appendage size with no evidence of thrombus formation. ATRIAL SEPTUM Normal atrial septal thickness without atrial level shunting by limited color doppler interrogation. AORTA The aortic root and proximal ascending aorta are normal in size on limited imaging. MITRAL VALVE Mild thickening of the mitral valve leaflets. Trace mitral valve regurgitation. AORTIC VALVE Trileaflet aortic valve. Aortic valve sclerosis is present. Diffuse calcification of the aortic valve. Mild aortic valve regurgitation. Severe aortic valve stenosis. Status post transcatheter aortic valve replacement TRICUSPID VALVE Mild thickening of the tricuspid valve leaflets. There is mild tricuspid valve regurgitation. VESSELS The inferior vena cava is normal in size. PULMONARY VALVE The pulmonary valve is not well visualized. PERICADIUM No pericardial effusion. Blayne Petit MD, FACC (Electronically Signed) Final Date:02 December 2017 14:51
[2017-12-02] MEDS ORDERED: Magnesium Sulfate Inj 2 GM in Sodium Chlor 0.9% Inj 96 ML IV.SIG ONE (15:00)
[2017-12-02] MEDS: Gabapentin 300 MG Capsule PO SCH (17:58)
[2017-12-02] MEDS ORDERED: Magnesium Citrate Liq 300 ML Bottle PO ONE (18:15)
--- NOTE | 2017-12-02 20:57 | ECG ---
Date Performed: 12/02/2017 Time Performed: 07:50:06 PTAGE: 77 years EKG: Sinus rhythm . Left axis deviation RBBB with left anterior fascicular block Inferior infarct - age undetermined Ab normal ECG PREVIOUS TRACING : 11/24/2017 05.51 Since the previous tracing, no significant change noted DOCTOR: Julian Cerda Interpretating Date/Time 12/02/2017 20:56:02
[2017-12-02] MEDS: Budesonide-Formoterol 160/4.5 MCG 6 GM Inhaler INH SCH (21:55)
[2017-12-02 23:25] LABS: Magnesium 1.9 mg/dL (1.5-2.5)
[2017-12-02 23:33] LABS: Thyroid Stimulating Hormone 5.46 uIU/mL (0.358-3.740)
[2017-12-03] MEDS ORDERED: Sod Phosphate/Sod Biphosphate (Adult) Enema 133 ML Bottle RECTAL SCH (03:00)
[2017-12-03] MEDS ORDERED: Sodium Chloride 0.9% 2 ML Flush PRN IV.FLUSH (05:06)
[2017-12-03] MEDS ORDERED: Magnesium Citrate Liq 300 ML Bottle PO ONE (05:47)
[2017-12-03 05:57] LABS: Hematocrit 32.2 % (39.0-51.0); Hemoglobin 11.1 gm/dL (13.0-17.0); Mean Corpuscular HGB Conc 34.5 % (32.0-36.0); Mean Corpuscular Hemoglobin 30.7 pg (27.0-34.0); Mean Corpuscular Volume 89.2 fL (80.0-100.0); Mean Platelet Volume 7.9 fL (7.0-11.0); Platelet Count 232 th/mm3 (150-450); Red Blood Count 3.61 mil/mm3 (4.50-5.90); Red Cell Distribution Width 13.7 % (11.6-17.2); White Blood Count 8.3 th/mm3 (4.0-11.0)
[2017-12-03 06:17] LABS: Albumin 3.1 g/dL (3.4-5.0); Calcium 7.1 mg/dL (8.5-10.1); Carbon Dioxide 22.8 meq/L (21.0-32.0); Potassium 4.2 meq/L (3.5-5.1); Total Protein 5.8 g/dL (6.4-8.2)
--- NOTE | 2017-12-03 07:12 | P.PNCC ---
Subjective Subjective Remarks/Hospital Course: Hospital Course: This is a 77-year-old male with severe aortic stenosis who presents for transcatheter aortic valve replacement. He underwent uncomplicated placement. He arrives to the CVICU extubated in stable condition. He is arousing from anesthesia. Due to his somnolence arousing from anesthesia complete review of systems is unobtainable. Limited review of systems is negative for chest pain, shortness of breath, sore throat, nausea, vomiting, headache. Subjective: 12/03: intermittently wide complex tachycardia, rates in the 100s - 140s: appears to be afib or SVT with aberrancy, but rate appears quite slow at times. given 2 doses of amiodarone and started on amio drip overnight. also patient complains of constipation: did not have BM yesterday with mag citrate. Objective Vital Signs / I&O: Vital Signs 12/02/17 08:20 12/02/17 14:00 12/02/17 15:00 Temperature 36.6 C 36.4 C L 36.4 C L Pulse Rate 67 111 H 114 H Respiratory Rate 16 16 16 Blood Pressure 148/86 H 132/69 110/72 Pulse Oximetry 97 94 L 94 L 12/02/17 16:00 12/02/17 16:20 12/02/17 17:00 Temperature 36.4 C L 36.4 C Pulse Rate 61 61 59 L Respiratory Rate 16 18 Blood Pressure 143/56 H 151/77 H Pulse Oximetry 98 98 12/02/17 18:00 12/02/17 18:39 12/02/17 19:00 Temperature 36.3 C L Pulse Rate 75 80 Respiratory Rate 18 18 20 Blood Pressure 154/82 H 168/54 H Pulse Oximetry 98 97 12/02/17 21:54 12/02/17 23:00 12/03/17 01:56 Temperature 36.3 C L Pulse Rate 72 Respiratory Rate 20 24 22 Blood Pressure 151/53 H Pulse Oximetry 93 L 12/03/17 03:00 Temperature 36.4 C L Pulse Rate 60 Respiratory Rate 20 Blood Pressure 152/51 H Pulse Oximetry 96 Intake & Output 12/02/17 12/03/17 12/03/17 18:59 06:59 18:59 Intake Total 1750 / 1750 920 / 920 Output Total 880 / 880 475 / 475 Balance 870 / 870 445 / 445 Weight 98.7 kg 97.5 kg Intake: IV 150 / 150 200 / 200 Cordarone Inj 150 MG In D5W Inj 100 / 100 100 / 100 97 ML @ 100 mls/hr IV.SIG ONCE ONE Rx#:[id number] Magnesium Sulfate Inj 2 GM In 100 / 100 NS Inj 96 ML @ 50 mls/hr IV.SIG ONCE ONE Rx#:[id number] Ancef 2 GM Premix Inj 2 gm In 50 / 50 50 ml @ 100 mls/hr IV.SIG ONCE [facility] Rx#:[id number] Oral 200 / 200 720 / 720 Anesthesia Amount 1400 / 1400 Output: Estimated Blood Loss 20 / 20 Urine Amount (Catheter) 860 / 860 475 / 475 Indwelling Temp Sensing 860 / 860 475 / 475 Catheter Other: Date of Last Bowel Movement 11/30/17 Weight On Admission 98.7 kg Result Diagrams: 12/03/17 04:00 12/03/17 04:00 Objective Remarks: GENERAL: Frail elderly male, lying in bed, no acute distress. HEENT: Normocephalic. Atraumatic. Pupils equal, round, reactive, conjugate. Mucous membranes are moist NECK: Trachea is midline. There is no JVD. CHEST: unlabored. equal chest rise. nc o2. CARDIOVASCULAR: normal rate, regular rhythm. currently sinus bradycardia at rate of 53. ABDOMEN: Soft, nontender, nondistended. No guarding. MUSCULOSKELETAL: Pulses 2+. No peripheral edema. bilateral groin sites are clean and dry, no evidence of hematoma, dressing intact. NEUROLOGICAL: RASS 0. follows commands, no focal deficits. Assessment and Plan - Assessment and Plan Plan: Assessment: 77-year-old male postop day 1 status post transcatheter aortic valve replacement. course complicated by asymptomatic intermittent wide complex tachycardia and chronic constipation. S/p TAVR 12/02 via groin access - anticoagulation per sustainable agriculture faculty - SL IVF Hypertension - goal sbp < 180 - add back antihypertensives as needed Congestive Heart Failure secondary to valvulopathy - restart home lasix. paroxysmal wide-complex tachycardia: likely afib with aberrancy - will allow Dr. Petit to guide therapy: would recommend continued AV sharon blockade. could consider d/c amio drip today- may likely not need long-term amio. patient is asymptomatic with these episodes. CAD - ASA Hyperlipidemia - home statin COPD - prn nebs - wean o2 for goal spo2 > 90% - oob after flat time - aggressive pulmonary toilet. Hypothyroidism - home synthroid Diabetes - SSI Constipation - chronic issue, but patient complains today of needing BM - add mag citrate, lactulose, dulcolax suppository - would recommend enema this afternoon with GoLytely if no BM this AM. cardiac diet as tolerated. SCDs transfer out of ICU. critical care medicine will sign off.
[2017-12-03] MEDS: Levothyroxine 75 MCG Tablet PO SCH (07:16)
--- NOTE | 2017-12-03 08:47 | P.PNCV ---
- Note Subjective/Hospital Course: 77/ male seen by both Dr Montelongo and Dr Lazaro as an outpt , who presented with > 6 month symptoms of progressive dyspnea with minimal exertion. Echo revealed moderate to severe with mild LV dysfunction. Cardiac cath demonstrated multivessel disease affecting LAD territory , where he underwent PCI with VALENT[place] x 2 , pt was also found to have sinus bradycardia with long NC interval with left anterior fascicular block with RBBB. He then underwent EP study by Dr Lyons . Due to pt fragility and significant medical comorbidities, he was recommended for TAVR procedure IMPLANTED HARDWARE 11/23 The permanent pacemaker is a St ever. Model # RJ3824, serial number [id number]. The right atrial pacing and sensing lead is a St Ever model number 2088TC-52, serial number [id number]. The right ventricular pacing and sensing lead is a St Ever model number 2088TC- 58, serial number [id number]. PMH: DM, , HLP. 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 This was associated with an episode of emesis this morning which appeared black and tarry. He did receive the Plavix loading post procedure yesterday. We will have GI evaluate. Keep n.p.o. for now Might need to have the pacemaker interrogated as well Greatly appreciate gravity prospecting observer input Keep in ICU for now Agree with trying to block his underlying atka rhythm once the pacemaker is interrogated. Objective: Vital Signs - 24 hr 12/02/17 14:00 12/02/17 15:00 12/02/17 16:00 Temperature 97.5 F L 97.5 F L 97.5 F L Pulse Rate 111 H 114 H 61 Respiratory Rate 16 16 16 Blood Pressure 132/69 110/72 143/56 H Pulse Oximetry 94 L 94 L 98 12/02/17 16:20 12/02/17 17:00 12/02/17 18:00 Temperature 97.6 F Pulse Rate 61 59 L 75 Respiratory Rate 18 18 Blood Pressure 151/77 H 154/82 H Pulse Oximetry 98 98 12/02/17 18:39 12/02/17 19:00 12/02/17 21:54 Temperature 97.4 F L Pulse Rate 80 Respiratory Rate 18 20 20 Blood Pressure 168/54 H Pulse Oximetry 97 12/02/17 23:00 12/03/17 01:56 12/03/17 03:00 Temperature 97.4 F L 97.5 F L Pulse Rate 72 60 Respiratory Rate 24 22 20 Blood Pressure 151/53 H 152/51 H Pulse Oximetry 93 L 96 12/03/17 07:00 Temperature 98 F Pulse Rate 68 Respiratory Rate 16 Blood Pressure 118/73 Pulse Oximetry 96 Labs: Laboratory Results - last 12 hr 12/02/17 12/03/17 12/03/17 08:15 04:00 04:00 WBC 8.3 RBC 3.61 L Hgb 11.1 L Hct 32.2 L MCV 89.2 MCH 30.7 MCHC 34.5 RDW 13.7 Plt Count 232 MPV 7.9 Sodium 139 Potassium 4.2 Chloride 104 Carbon Dioxide 22.8 Anion Gap 12 BUN 23 H Creatinine 1.52 H Estimated GFR 45 L Random Glucose 335 H D Calcium 7.1 L* D Prot Corrected Calcium 7.8 L Magnesium 1.9 Total Bilirubin 0.5 AST 12 L ALT 11 L Alkaline Phosphatase 67 Total Protein 5.8 L Albumin 3.1 L TSH 5.460 H Result Diagrams: 12/03/17 04:00 12/03/17 04:00
[2017-12-03] MEDS ORDERED: amLODIPine 5 MG Tablet PO SCH (09:00)
--- NOTE | 2017-12-03 09:00 | P.PNCA ---
Subjective Interval history: Postop day 1 from TAVR. Patient had 3 episodes of coffee-ground emesis this morning. Telemetry shows wide complex tachyarrhythmia overnight, possible VT. Patient had pacemaker placed last week. Patient denies any chest pain, shortness breath, palpitations. The patient does complain of constipation. Medications and Allergies Allergies Allergy/AdvReac Type Severity Reaction Status Date / Time No Known Allergies Allergy Verified 12/02/17 08:26 Home Medications Medication Instructions Recorded Confirmed Type amlodipine 5 mg PO DAILY 11/23/17 12/02/17 History budesonide-formoterol [Symbicort] 2 puff INHALATION BID 11/23/17 11/23/17 History cilostazol 100 mg PO BID 11/23/17 12/02/17 History clopidogrel [Plavix] 75 mg PO DAILY 11/23/17 12/02/17 History gabapentin 300 mg PO TID 11/23/17 11/23/17 History insulin detemir U-100 [Levemir unit SUB-Q QPM 11/23/17 11/23/17 History FlexTouch U-100 Insuln] insulin lispro [Humalog KwikPen unit SUB-Q QAM 11/23/17 11/23/17 History Insulin] levothyroxine 75 mcg PO DAILY 11/23/17 12/02/17 History losartan 100 mg PO DAILY 11/23/17 11/23/17 History metformin 1,000 mg PO BID 11/23/17 12/02/17 History furosemide [Lasix] 40 mg PO BID 12/02/17 12/02/17 History pantoprazole [Protonix] 40 mg PO DAILY 12/02/17 12/02/17 History Active Medications: Active Medications Acetaminophen (Tylenol) 650 mg PO Q4H PRN PRN Reason: PAIN SCALE 1 TO 2 Stop: 12/03/17 13:15 Last Admin: 12/02/17 19:34 Dose: 650 mg Albuterol (Duoneb Neb (Prn)) 1 ampul NEB Q2HR NEB PRN PRN Reason: WHEEZING Amlodipine Besylate (Norvasc) 5 mg PO DAILY [facility] Aspirin (Aspirin) 325 mg PO [employer]AL [employer] [facility] Stop: 12/05/17 08:06 Last Admin: 12/02/17 08:38 Dose: 325 mg Aspirin (Aspirin Chew) 81 mg PO DAILY [facility] Benzocaine/Menthol (Cepacol Max Strength) 1 lozenge BUCCAL Q3H PRN PRN Reason: SORE THROAT Stop: 12/03/17 13:15 Bisacodyl (Dulcolax Supp) 10 mg RECTAL DAILY [facility] Budesonide/Formoterol Fumarate (Symbicort 160/4.5 Mcg Inh) 2 puff INH BID [facility] Last Admin: 12/02/17 21:55 Dose: 2 puff Chlorhexidine Gluconate (Chlorhexidine 2% Cloth) 3 pack TOPICAL MET[employer] [facility] Stop: 12/05/17 08:06 Clopidogrel Bisulfate (Plavix) 75 mg PO DAILY [facility] Ferrous Sulfate (Ferosul) 325 mg PO DAILY [facility] Furosemide (Lasix) 40 mg PO BID [facility] Gabapentin (Neurontin) 300 mg PO TID [facility] Last Admin: 12/02/17 17:58 Dose: 300 mg Sodium Chloride (Ns Inj) 500 mls @ 30 mls/hr IV.SIG .Q10H [facility] Cefazolin Sodium/Dextrose (Ancef 2 Gm Premix Inj) 2 gm in 50 mls @ 100 mls/hr IV.SIG ONCE [facility] Stop: 12/05/17 08:06 Last Infusion: 12/02/17 11:36 Dose: Infused Sodium Chloride (Ns Inj) 1,000 mls @ 125 mls/hr IV.CONT .Q8H [facility]AB[facility] Magnesium Sulfate 4 gm/ Sodium (Chloride) 100 mls @ 50 mls/hr IV.SIG UNSCH PRN PRN Reason: For Magnesium 0.9 - 1.1 mg/dL Magnesium Sulfate 2 gm/ Sodium (Chloride) 100 mls @ 50 mls/hr IV.SIG UNSCH PRN PRN Reason: For Magnesium 1.2 - 1.6 mg/dL Potassium Chloride (Kcl 40 Meq Premix Inj) 40 meq in 100 mls @ 50 mls/hr IV.SIG Q2H PRN PRN Reason: For Potassium 2.8 - 3.2 mEq/L Potassium Chloride (Kcl 20 Meq Premix Inj) 20 meq in 100 mls @ 50 mls/hr IV.SIG Q2H PRN PRN Reason: For Potassium 3.3 - 3.5 mEq/L Potassium Chloride (Kcl 40 Meq Premix Inj) 40 meq in 100 mls @ 25 mls/hr IV.SIG UNSCH PRN PRN Reason: For Potassium 3.3 - 3.5 mEq/L Potassium Chloride (Kcl 20 Meq Premix Inj) 20 meq in 100 mls @ 50 mls/hr IV.SIG Q2H PRN PRN Reason: For Potassium 2.8 - 3.2 mEq/L Potassium Phosphate 30 mmol/ (Sodium Chloride) 260 mls @ 42 mls/hr IV.SIG UNSCH PRN PRN Reason: SEE LABEL COMMENTS Sodium Phosphate 30 mmol/ (Sodium Chloride) 260 mls @ 42 mls/hr IV.SIG UNSCH PRN PRN Reason: For Phosphorus < 2.5 mg/dL Amiodarone HCl 450 mg/ (Dextrose) 250 mls @ 33.33 mls/hr IV.CONT TITRATE PRN; Protocol PRN Reason: Per Protocol Last Admin: 12/03/17 00:17 Dose: 1 mg/min, 33.33 mls/hr Lactulose (Lactulose Liq) 30 ml PO DAILY [facility] Levothyroxine Sodium (Synthroid) 75 mcg PO DAILY@0600 [facility] Last Admin: 12/03/17 07:16 Dose: 75 mcg Losartan Potassium (Cozaar) 100 mg PO DAILY [facility] Magnesium Oxide (Mag-Ox) 800 mg PO UNSCH PRN PRN Reason: For Magnesium 1.2 - 1.6 mg/dL Mupirocin (Bactroban 2% Nasal Oint) 1 applicatio EACH NARE [employer] [facility] Stop: 12/05/17 08:06 Oxycodone/Acetaminophen (Percocet 5/325 Mg) 1 tab PO Q6H PRN PRN Reason: PAIN SCALE 3 TO 5 Last Admin: 12/02/17 23:42 Dose: 1 tab Potassium Bicarb/Potassium Chloride (K-Lyte Cl Eff) 50 meq PO UNSCH PRN PRN Reason: For Potassium 3.3 - 3.5 mEq/L Potassium Phosphate (K-Phos Original) 2,000 mg PO Q4H PRN PRN Reason: Phosphorus Less Than 2.5 mg/dL Potassium Phosphate (K-Phos Original) 2,000 mg PO UNSCH PRN PRN Reason: SEE LABEL COMMENTS Povidone Iodine (Betadine 5% Antisepsis Kit) 1 applicatio [employer]ICAL [employer] [facility] Stop: 12/05/17 08:06 Sodium Chloride (Ns Flush) 2 ml IV.FLUSH BID [facility] Sodium Chloride (Ns Flush) 2 ml IV.FLUSH PRN PRN PRN Reason: FLUSH AFTER USING IV ACCESS Physical Exam Vital signs: Vital Signs 12/02/17 14:00 12/02/17 15:00 12/02/17 16:00 Temperature 97.5 F L 97.5 F L 97.5 F L Pulse Rate 111 H 114 H 61 Respiratory Rate 16 16 16 Blood Pressure 132/69 110/72 143/56 H Pulse Oximetry 94 L 94 L 98 12/02/17 16:20 12/02/17 17:00 12/02/17 18:00 Temperature 97.6 F Pulse Rate 61 59 L 75 Respiratory Rate 18 18 Blood Pressure 151/77 H 154/82 H Pulse Oximetry 98 98 12/02/17 18:39 12/02/17 19:00 12/02/17 21:54 Temperature 97.4 F L Pulse Rate 80 Respiratory Rate 18 20 20 Blood Pressure 168/54 H Pulse Oximetry 97 12/02/17 23:00 12/03/17 01:56 12/03/17 03:00 Temperature 97.4 F L 97.5 F L Pulse Rate 72 60 Respiratory Rate 24 22 20 Blood Pressure 151/53 H 152/51 H Pulse Oximetry 93 L 96 12/03/17 07:00 12/03/17 08:57 Temperature 98 F Pulse Rate 68 Respiratory Rate 16 Blood Pressure 118/73 Pulse Oximetry 96 96 Intake & Output 12/02/17 12/03/17 12/03/17 18:59 06:59 18:59 Intake Total 1750 / 1750 920 / 920 Output Total 880 / 880 475 / 475 Balance 870 / 870 445 / 445 Weight 217 lb 9.54 oz 214 lb 15.211 oz Intake: IV 150 / 150 200 / 200 Cordarone Inj 150 MG In D5W Inj 100 / 100 100 / 100 97 ML @ 100 mls/hr IV.SIG ONCE ONE Rx#:[id number] Magnesium Sulfate Inj 2 GM In 100 / 100 NS Inj 96 ML @ 50 mls/hr IV.SIG ONCE ONE Rx#:[id number] Ancef 2 GM Premix Inj 2 gm In 50 / 50 50 ml @ 100 mls/hr IV.SIG ONCE FABIAN Rx#:[id number] Oral 200 / 200 720 / 720 Anesthesia Amount 1400 / 1400 Output: Estimated Blood Loss 20 / 20 Urine Amount (Catheter) 860 / 860 475 / 475 Indwelling Temp Sensing 860 / 860 475 / 475 Catheter Other: Date of Last Bowel Movement 11/30/17 Weight On Admission 217 lb 9.54 oz Narrative: GENERAL: Well-developed well-nourished. In no acute distress. NECK: No carotid bruits. No JVD. CARDIOVASCULAR: Regular rate and rhythm. No murmur appreciated. RESPIRATORY: No accessory muscle use. Clear to auscultation. Breath sounds equal bilaterally. MUSCULOSKELETAL: No clubbing or cyanosis. No edema. NEUROLOGICAL: Awake and alert. Normal speech. - Urinary Catheter Management Indwelling Temp Sensing Catheter Cath placed during this visit: yes Reason for continuing: Hourly intake/output Insertion date: 12/02/17 Insertion time: 11:50 Results 12/03/17 04:00 12/03/17 04:00 Cardiac Enzymes 12/03/17 Range/Units 04:00 AST 12 L (15-37) U/L Coagulation 12/02/17 Range/Units 08:15 PT 10.6 (9.8-11.6) sec APTT 22.6 L (24.3-30.1) sec CBC 12/02/17 12/03/17 Range/Units 08:15 04:00 WBC 6.5 8.3 (4.0-11.0) th/mm3 RBC 4.00 L 3.61 L (4.50-5.90) mil/mm3 Hgb 12.3 L 11.1 L (13.0-17.0) gm/dL Hct 36.1 L 32.2 L (39.0-51.0) % Plt Count 255 232 (150-450) th/mm3 Neut # (Auto) 4.5 (1.8-7.7) th/mm3 Lymph # (Auto) 1.2 (1.0-4.8) th/mm3 Simpson # (Auto) 0.4 (0.0-0.9) th/mm3 Eos # (Auto) 0.4 (0.0-0.4) th/mm3 Baso # (Auto) 0.0 (0.0-0.2) th/mm3 Comprehensive Metabolic Panel 12/02/17 12/03/17 Range/Units 08:15 04:00 Sodium 140 139 (136-145) meq/L Potassium 3.9 4.2 (3.5-5.1) meq/L Chloride 109 H 104 (98-107) meq/L Carbon Dioxide 22.3 22.8 (21.0-32.0) meq/L BUN 21 H 23 H (7-18) mg/dL Creatinine 1.37 H 1.52 H (0.60-1.30) mg/dL Calcium 8.3 L 7.1 L* D (8.5-10.1) mg/dL AST 12 L (15-37) U/L ALT 11 L (12-78) U/L Alkaline Phosphatase 67 (45-117) U/L Total Protein 5.8 L (6.4-8.2) g/dL Albumin 3.1 L (3.4-5.0) g/dL Intake and Output 12/02/17 12/03/17 12/03/17 22:59 06:59 14:59 Intake Total 400 / 400 820 / 820 Output Total 800 / 800 475 / 475 Balance -400 / -400 345 / 345 Intake: IV 200 / 200 100 / 100 Cordarone Inj 150 MG In D5W Inj 100 / 100 100 / 100 97 ML @ 100 mls/hr IV.SIG ONCE ONE Rx#:[id number] Magnesium Sulfate Inj 2 GM In 100 / 100 NS Inj 96 ML @ 50 mls/hr IV.SIG ONCE ONE Rx#:[id number] Oral 200 / 200 720 / 720 Output: Urine Amount (Catheter) 800 / 800 475 / 475 Indwelling Temp Sensing 800 / 800 475 / 475 Catheter Other: Date of Last Bowel Movement 11/30/17 11/30/17 Weight 214 lb 15.211 oz Assessment and Plan - Assessment (1) Severe aortic valve stenosis Code(s): I35.0 - Nonrheumatic aortic (valve) stenosis Status: Acute (2) Status post transcatheter aortic valve replacement (TAVR) using bioprosthesis Code(s): Z95.3 - Presence of xenogenic heart valve Status: Acute (3) Acute on chronic diastolic (congestive) heart failure Code(s): I50.33 - Acute on chronic diastolic (congestive) heart failure Status : Acute Plan: Diuretic therapy - Plan This is a 77-year-old male with history of coronary artery disease status post recent percutaneous coronary intervention, recent permanent pacemaker, and severe aortic valve stenosis. Patient is admitted today for elective transcatheter aortic valve replacement. Preoperative workup: STS score 8% [place] [employer] functional class III symptoms BMI 29.9 Frailty 04/05 Electrocardiogram shows sinus rhythm with first-degree AV block and right bundle branch block and left anterior fascicular block status post permanent pacemaker Pulmonary function testing performed on October 27, 2017 shows mild to moderate obstructive and salutatory defect with an FEV1 of 1.95 Transthoracic echocardiogram from October 27, 2017 shows peak jet velocity 4.4 m/ s, mean gradient 43 mmHg, calculated valve area 0.65 cm, ejection fraction 60- 65%, trace aortic insufficiency, trace mitral regurgitation, trace tricuspid regurgitation Cardiac catheterization from July 24, 2017 shows severe proximal extending into the mid left anterior descending coronary stenosis status post 2 drug-eluting stents Computed tomography October 26, 2017 reveals short annulus diameter 26.6 mm, long annulus diameter 34.5 mm annular area of 721.2 mm square, sinus of Valsalva diameter 47.0 mm, sinotubular junction diameter 39.5 mm, left coronary height 18.8 mm, right coronary height 25.1 mm with an implant angle right anterior oblique 3 and cranial 1, minimal luminal diameter in the right iliac system 10.0 mm and left system 10.5 mm 77-year-old gentleman with severe aortic valve stenosis with 8% and STS score and felt to be high surgical risk for surgical aortic valve replacement. Patient underwent transcatheter valve replacement using a [place] CP and S3 29 mm bioprosthetic aortic valve from a right common femoral arterial approach on 12/02. Continue amiodarone gtt for possible VT. Contact device rep for interrogation today. Coffee-ground emesis, GI consult, must remain on aspirin/Plavix. Limited echo today. Discussed Condition With: Patient, RN, Dr. Petit, Dr. Ortiz, Dr. Lazaro - Attending Attestation agree with above ambulate monitor Hb GI consulted - monitor for now FeSO4 DC planning for tomorrow
--- NOTE | 2017-12-03 10:01 | P.CONGI ---
History of Present Illness Consult reason: hematemesis Chief complaint: TAVR History of Present Illness: This is a 77-year-old male with history of coronary artery disease and severe aortic valve stenosis.who was admitted for elective transcatheter aortic valve replacement (TAVR) which was preformed on 12/02/17. He is status post recent permanent pacemaker. Patient had 3 episodes of hematemesis this morning, started off with bright red then turned into black coffee ground emesis. Pt is poor historian, endorses hx of gastric ulcer 10 yrs ago. Denies every having EGD /colonoscopy before. He has been constipated and feels some what bloated. He is on Aspirin and Plavix, per cardiology, pt must remain on these meds. <Marlene Santillan - Last Filed: 12/20/17 10:02> Review of Systems All other systems reviewed negative except as stated in HPI <Marlene Santillan - Last Filed: 12/20/17 10:02> PMFSH - Medical History Medical History: Medical History (Last Reviewed 12/03/17 @ 07:52 by Newton Morrow PT) Chronic diastolic (congestive) heart failure Diabetes Severe aortic valve stenosis CAD (coronary artery disease) CHF (congestive heart failure) COPD (chronic obstructive pulmonary disease) Dyslipidemia HTN (hypertension) Hypothyroid SOB (shortness of breath) - Surgical History Surgical History: Surgical History (Last Reviewed 12/03/17 @ 07:52 by Newtno Morrow PT) Stented coronary artery - Family History Family History: Family History (Last Updated 12/02/17 @ 14:08 by Ed Ramirez MD) Other Family history non-contributory <Pankaj Alcantar - Last Filed: 12/03/17 16:48> - History History Provided By: Patient - Medical History Medical History: Medical History (Last Reviewed 12/03/17 @ 07:52 by Newton Morrow PT) CAD (coronary artery disease) CHF (congestive heart failure) COPD (chronic obstructive pulmonary disease) Chronic diastolic (congestive) heart failure Diabetes Dyslipidemia HTN (hypertension) Hypothyroid SOB (shortness of breath) Severe aortic valve stenosis - Surgical History Surgical History: Surgical History (Last Reviewed 12/03/17 @ 07:52 by Newton Morrow PT) Stented coronary artery - Family History Family History: Family History (Last Updated 12/02/17 @ 14:08 by Ed Ramirez MD) Other Family history non-contributory - Tobacco History Second Hand Smoke Exposure: No Smoking Status: Never smoker - Alcohol History How Often Do You Have a Drink Containing Alcohol: Never - Substance Use History Substance History: No History of Abuse <Marlene Santillan - Last Filed: 12/20/17 10:02> Medications and Allergies Active Medications: Active Medications Albuterol (Duoneb Neb (Prn)) 1 ampul NEB Q2HR NEB PRN PRN Reason: WHEEZING Amlodipine Besylate (Norvasc) 5 mg PO DAILY [facility] Last Admin: 12/03/17 10:28 Dose: 5 mg Aspirin (Aspirin) 325 mg PO CARTOGRAPHY TECHNICIAN [facility] Stop: 12/05/17 08:06 Last Admin: 12/02/17 08:38 Dose: 325 mg Aspirin (Aspirin Chew) 81 mg PO DAILY [facility] Last Admin: 12/03/17 10:28 Dose: 81 mg Bisacodyl (Dulcolax Supp) 10 mg RECTAL DAILY [facility] Last Admin: 12/03/17 10:29 Dose: 10 mg Budesonide/Formoterol Fumarate (Symbicort 160/4.5 Mcg Inh) 2 puff INH BID [facility] Last Admin: 12/03/17 10:29 Dose: 2 puff Chlorhexidine Gluconate (Chlorhexidine 2% Cloth) 3 pack TOPICAL CARTOGRAPHY TECHNICIAN [facility] Stop: 12/05/17 08:06 Clopidogrel Bisulfate (Plavix) 75 mg PO DAILY [facility] Last Admin: 12/03/17 10:27 Dose: 75 mg Docusate Sodium (Colace) 100 mg PO BID [facility] Last Admin: 12/03/17 10:27 Dose: 100 mg Ferrous Sulfate (Ferosul) 325 mg PO DAILY [facility] Last Admin: 12/03/17 10:26 Dose: 325 mg Furosemide (Lasix) 40 mg PO BID [facility] Last Admin: 12/03/17 10:28 Dose: 40 mg Gabapentin (Neurontin) 300 mg PO TID [facility] Last Admin: 12/03/17 14:14 Dose: 300 mg Sodium Chloride (Ns Inj) 500 mls @ 30 mls/hr IV.SIG .Q10H [facility] Cefazolin Sodium/Dextrose (Ancef 2 Gm Premix Inj) 2 gm in 50 mls @ 100 mls/hr IV.SIG ONCE [facility] Stop: 12/05/17 08:06 Last Infusion: 12/02/17 11:36 Dose: Infused Sodium Chloride (Ns Inj) 1,000 mls @ 125 mls/hr IV.CONT .Q8H [facility] Magnesium Sulfate 4 gm/ Sodium (Chloride) 100 mls @ 50 mls/hr IV.SIG UNSCH PRN PRN Reason: For Magnesium 0.9 - 1.1 mg/dL Magnesium Sulfate 2 gm/ Sodium (Chloride) 100 mls @ 50 mls/hr IV.SIG UNSCH PRN PRN Reason: For Magnesium 1.2 - 1.6 mg/dL Potassium Chloride (Kcl 40 Meq Premix Inj) 40 meq in 100 mls @ 50 mls/hr IV.SIG Q2H PRN PRN Reason: For Potassium 2.8 - 3.2 mEq/L Potassium Chloride (Kcl 20 Meq Premix Inj) 20 meq in 100 mls @ 50 mls/hr IV.SIG Q2H PRN PRN Reason: For Potassium 3.3 - 3.5 mEq/L Potassium Chloride (Kcl 40 Meq Premix Inj) 40 meq in 100 mls @ 25 mls/hr IV.SIG UNSCH PRN PRN Reason: For Potassium 3.3 - 3.5 mEq/L Potassium Chloride (Kcl 20 Meq Premix Inj) 20 meq in 100 mls @ 50 mls/hr IV.SIG Q2H PRN PRN Reason: For Potassium 2.8 - 3.2 mEq/L Potassium Phosphate 30 mmol/ (Sodium Chloride) 260 mls @ 42 mls/hr IV.SIG UNSCH PRN PRN Reason: SEE LABEL COMMENTS Sodium Phosphate 30 mmol/ (Sodium Chloride) 260 mls @ 42 mls/hr IV.SIG UNSCH PRN PRN Reason: For Phosphorus < 2.5 mg/dL Pantoprazole Sodium 80 mg/ (Sodium Chloride) 100 mls @ 10 mls/hr IV.CONT CONT [facility] Last Admin: 12/03/17 13:18 Dose: 10 mls/hr Lactulose (Lactulose Liq) 30 ml PO DAILY [facility] Last Admin: 12/03/17 10:29 Dose: 30 ml Levothyroxine Sodium (Synthroid) 75 mcg PO DAILY@0600 [facility] Last Admin: 12/03/17 07:16 Dose: 75 mcg Losartan Potassium (Cozaar) 100 mg PO DAILY [facility] Last Admin: 12/03/17 10:28 Dose: 100 mg Magnesium Oxide (Mag-Ox) 800 mg PO UNSCH PRN PRN Reason: For Magnesium 1.2 - 1.6 mg/dL Mupirocin (Bactroban 2% Nasal Oint) 1 applicatio EACH NARE CARTOGRAPHY TECHNICIAN [facility] Stop: 12/05/17 08:06 Ondansetron HCl (Zofran Inj) 4 mg IV.PUSH Q6H PRN PRN Reason: NAUSEA OR VOMITING Last Admin: 12/03/17 10:26 Dose: 4 mg Oxycodone/Acetaminophen (Percocet 5/325 Mg) 1 tab PO Q6H PRN PRN Reason: PAIN SCALE 3 TO 5 Last Admin: 12/02/17 23:42 Dose: 1 tab Potassium Bicarb/Potassium Chloride (K-Lyte Cl Eff) 50 meq PO UNSCH PRN PRN Reason: For Potassium 3.3 - 3.5 mEq/L Potassium Phosphate (K-Phos Original) 2,000 mg PO Q4H PRN PRN Reason: Phosphorus Less Than 2.5 mg/dL Potassium Phosphate (K-Phos Original) 2,000 mg PO UNSCH PRN PRN Reason: SEE LABEL COMMENTS Povidone Iodine (Betadine 5% Antisepsis Kit) 1 applicatio TOPICAL CARTOGRAPHY TECHNICIAN [facility] Stop: 12/05/17 08:06 Sodium Chloride (Ns Flush) 2 ml IV.FLUSH BID [facility] Last Admin: 12/03/17 10:30 Dose: 2 ml Sodium Chloride (Ns Flush) 2 ml IV.FLUSH PRN PRN PRN Reason: FLUSH AFTER USING IV ACCESS <Pankaj Alcantar E - Last Filed: 12/03/17 16:48> Active Medications: Active Medications Acetaminophen (Tylenol) 650 mg PO Q4H PRN PRN Reason: PAIN SCALE 1 TO 2 Stop: 12/03/17 13:15 Last Admin: 12/02/17 19:34 Dose: 650 mg Albuterol (Duoneb Neb (Prn)) 1 ampul NEB Q2HR NEB PRN PRN Reason: WHEEZING Amlodipine Besylate (Norvasc) 5 mg PO DAILY [facility] Aspirin (Aspirin) 325 mg PO CARTOGRAPHY TECHNICIAN [facility] Stop: 12/05/17 08:06 Last Admin: 12/02/17 08:38 Dose: 325 mg Aspirin (Aspirin Chew) 81 mg PO DAILY [facility] Benzocaine/Menthol (Cepacol Max Strength) 1 lozenge BUCCAL Q3H PRN PRN Reason: SORE THROAT Stop: 12/03/17 13:15 Bisacodyl (Dulcolax Supp) 10 mg RECTAL DAILY [facility] Budesonide/Formoterol Fumarate (Symbicort 160/4.5 Mcg Inh) 2 puff INH BID [facility] Last Admin: 12/02/17 21:55 Dose: 2 puff Chlorhexidine Gluconate (Chlorhexidine 2% Cloth) 3 pack TOPICAL CARTOGRAPHY TECHNICIAN [facility] Stop: 12/05/17 08:06 Clopidogrel Bisulfate (Plavix) 75 mg PO DAILY [facility] Docusate Sodium (Colace) 100 mg PO BID [facility] Ferrous Sulfate (Ferosul) 325 mg PO DAILY [facility] Furosemide (Lasix) 40 mg PO BID [facility] Gabapentin (Neurontin) 300 mg PO TID [facility] Last Admin: 12/02/17 17:58 Dose: 300 mg Sodium Chloride (Ns Inj) 500 mls @ 30 mls/hr IV.SIG .Q10H [facility] Cefazolin Sodium/Dextrose (Ancef 2 Gm Premix Inj) 2 gm in 50 mls @ 100 mls/hr IV.SIG ONCE [facility] Stop: 12/05/17 08:06 Last Infusion: 12/02/17 11:36 Dose: Infused Sodium Chloride (Ns Inj) 1,000 mls @ 125 mls/hr IV.CONT .Q8H [facility] Magnesium Sulfate 4 gm/ Sodium (Chloride) 100 mls @ 50 mls/hr IV.SIG UNSCH PRN PRN Reason: For Magnesium 0.9 - 1.1 mg/dL Magnesium Sulfate 2 gm/ Sodium (Chloride) 100 mls @ 50 mls/hr IV.SIG UNSCH PRN PRN Reason: For Magnesium 1.2 - 1.6 mg/dL Potassium Chloride (Kcl 40 Meq Premix Inj) 40 meq in 100 mls @ 50 mls/hr IV.SIG Q2H PRN PRN Reason: For Potassium 2.8 - 3.2 mEq/L Potassium Chloride (Kcl 20 Meq Premix Inj) 20 meq in 100 mls @ 50 mls/hr IV.SIG Q2H PRN PRN Reason: For Potassium 3.3 - 3.5 mEq/L Potassium Chloride (Kcl 40 Meq Premix Inj) 40 meq in 100 mls @ 25 mls/hr IV.SIG UNSCH PRN PRN Reason: For Potassium 3.3 - 3.5 mEq/L Potassium Chloride (Kcl 20 Meq Premix Inj) 20 meq in 100 mls @ 50 mls/hr IV.SIG Q2H PRN PRN Reason: For Potassium 2.8 - 3.2 mEq/L Potassium Phosphate 30 mmol/ (Sodium Chloride) 260 mls @ 42 mls/hr IV.SIG UNSCH PRN PRN Reason: SEE LABEL COMMENTS Sodium Phosphate 30 mmol/ (Sodium Chloride) 260 mls @ 42 mls/hr IV.SIG UNSCH PRN PRN Reason: For Phosphorus < 2.5 mg/dL Amiodarone HCl 450 mg/ (Dextrose) 250 mls @ 33.33 mls/hr IV.CONT TITRATE PRN; Protocol PRN Reason: Per Protocol Last Admin: 12/03/17 00:17 Dose: 1 mg/min, 33.33 mls/hr Lactulose (Lactulose Liq) 30 ml PO DAILY [facility] Levothyroxine Sodium (Synthroid) 75 mcg PO DAILY@0600 [facility] Last Admin: 12/03/17 07:16 Dose: 75 mcg Losartan Potassium (Cozaar) 100 mg PO DAILY [facility] Magnesium Oxide (Mag-Ox) 800 mg PO UNSCH PRN PRN Reason: For Magnesium 1.2 - 1.6 mg/dL Mupirocin (Bactroban 2% Nasal Oint) 1 applicatio EACH NARE CARTOGRAPHY TECHNICIAN [facility] Stop: 12/05/17 08:06 Ondansetron HCl (Zofran Inj) 4 mg IV.PUSH Q6H PRN PRN Reason: NAUSEA OR VOMITING Oxycodone/Acetaminophen (Percocet 5/325 Mg) 1 tab PO Q6H PRN PRN Reason: PAIN SCALE 3 TO 5 Last Admin: 12/02/17 23:42 Dose: 1 tab Potassium Bicarb/Potassium Chloride (K-Lyte Cl Eff) 50 meq PO UNSCH PRN PRN Reason: For Potassium 3.3 - 3.5 mEq/L Potassium Phosphate (K-Phos Original) 2,000 mg PO Q4H PRN PRN Reason: Phosphorus Less Than 2.5 mg/dL Potassium Phosphate (K-Phos Original) 2,000 mg PO UNSCH PRN PRN Reason: SEE LABEL COMMENTS Povidone Iodine (Betadine 5% Antisepsis Kit) 1 applicatio TOPICAL CARTOGRAPHY TECHNICIAN [facility] Stop: 12/05/17 08:06 Sodium Chloride (Ns Flush) 2 ml IV.FLUSH BID [facility] Sodium Chloride (Ns Flush) 2 ml IV.FLUSH PRN PRN PRN Reason: FLUSH AFTER USING IV ACCESS <Marlene Santillan - Last Filed: 12/20/17 10:02> Allergies Allergy/AdvReac Type Severity Reaction Status Date / Time No Known Allergies Allergy Verified 12/02/17 08:26 Home Medications Medication Instructions Recorded Confirmed Type budesonide-formoterol [Symbicort] 2 puff INHALATION BID 11/23/17 11/23/17 History clopidogrel [Plavix] 75 mg PO DAILY 11/23/17 12/02/17 History gabapentin 300 mg PO TID 11/23/17 11/23/17 History insulin detemir U-100 [Levemir unit SUB-Q QPM 11/23/17 11/23/17 History FlexTouch U-100 Insuln] insulin lispro [Humalog KwikPen unit SUB-Q QAM 11/23/17 11/23/17 History Insulin] metformin 1,000 mg PO BID 11/23/17 12/02/17 History pantoprazole [Protonix] 40 mg PO DAILY 12/02/17 12/02/17 History Exam Vital signs: Vital Signs 12/02/17 17:00 12/02/17 18:00 12/02/17 18:39 Temperature 97.6 F Pulse Rate 59 L 75 Respiratory Rate 18 18 18 Blood Pressure 151/77 H 154/82 H Pulse Oximetry 98 98 12/02/17 19:00 12/02/17 21:54 12/02/17 23:00 Temperature 97.4 F L 97.4 F L Pulse Rate 80 72 Respiratory Rate 20 20 24 Blood Pressure 168/54 H 151/53 H Pulse Oximetry 97 93 L 12/03/17 01:56 12/03/17 03:00 12/03/17 07:00 Temperature 97.5 F L 98 F Pulse Rate 60 68 Respiratory Rate 22 20 16 Blood Pressure 152/51 H 118/73 Pulse Oximetry 96 96 12/03/17 08:57 Temperature Pulse Rate Respiratory Rate Blood Pressure Pulse Oximetry 96 Intake & Output 12/02/17 12/03/17 12/03/17 18:59 06:59 18:59 Intake Total 1750 / 1750 920 / 920 250 / 250 Output Total 880 / 880 475 / 475 575 / 575 Balance 870 / 870 445 / 445 -325 / -325 Weight 98.7 kg 97.5 kg Intake: IV 150 / 150 200 / 200 250 / 250 Cordarone Inj 450 MG In D5W Inj 250 / 250 241 ML @ 1 MG/MIN 33.33 mls/hr IV.CONT TITRATE PRN Rx#: [id number] Cordarone Inj 150 MG In D5W Inj 100 / 100 100 / 100 97 ML @ 100 mls/hr IV.SIG ONCE ONE Rx#:[id number] Magnesium Sulfate Inj 2 GM In 100 / 100 NS Inj 96 ML @ 50 mls/hr IV.SIG ONCE ONE Rx#:[id number] Ancef 2 GM Premix Inj 2 gm In 50 / 50 50 ml @ 100 mls/hr IV.SIG ONCE [facility] Rx#:[id number] Oral 200 / 200 720 / 720 Anesthesia Amount 1400 / 1400 Output: Urine 275 / 275 Emesis 300 / 300 Estimated Blood Loss 20 / 20 Urine Amount (Catheter) 860 / 860 475 / 475 Indwelling Temp Sensing 860 / 860 475 / 475 Catheter Other: # Voids 1 Date of Last Bowel Movement 11/30/17 # Emeses 3 Weight On Admission 98.7 kg <Pankaj Alcantar E - Last Filed: 12/03/17 16:48> Vital signs: Vital Signs 12/02/17 14:00 12/02/17 15:00 12/02/17 16:00 Temperature 97.5 F L 97.5 F L 97.5 F L Pulse Rate 111 H 114 H 61 Respiratory Rate 16 16 16 Blood Pressure 132/69 110/72 143/56 H Pulse Oximetry 94 L 94 L 98 12/02/17 16:20 12/02/17 17:00 12/02/17 18:00 Temperature 97.6 F Pulse Rate 61 59 L 75 Respiratory Rate 18 18 Blood Pressure 151/77 H 154/82 H Pulse Oximetry 98 98 12/02/17 18:39 12/02/17 19:00 12/02/17 21:54 Temperature 97.4 F L Pulse Rate 80 Respiratory Rate 18 20 20 Blood Pressure 168/54 H Pulse Oximetry 97 12/02/17 23:00 12/03/17 01:56 12/03/17 03:00 Temperature 97.4 F L 97.5 F L Pulse Rate 72 60 Respiratory Rate 24 22 20 Blood Pressure 151/53 H 152/51 H Pulse Oximetry 93 L 96 12/03/17 07:00 12/03/17 08:57 Temperature 98 F Pulse Rate 68 Respiratory Rate 16 Blood Pressure 118/73 Pulse Oximetry 96 96 Intake & Output 12/02/17 12/03/17 12/03/17 18:59 06:59 18:59 Intake Total 1750 / 1750 920 / 920 Output Total 880 / 880 475 / 475 Balance 870 / 870 445 / 445 Weight 98.7 kg 97.5 kg Intake: IV 150 / 150 200 / 200 Cordarone Inj 150 MG In D5W Inj 100 / 100 100 / 100 97 ML @ 100 mls/hr IV.SIG ONCE ONE Rx#:[id number] Magnesium Sulfate Inj 2 GM In 100 / 100 NS Inj 96 ML @ 50 mls/hr IV.SIG ONCE ONE Rx#:[id number] Ancef 2 GM Premix Inj 2 gm In 50 / 50 50 ml @ 100 mls/hr IV.SIG ONCE [facility] Rx#:[id number] Oral 200 / 200 720 / 720 Anesthesia Amount 1400 / 1400 Output: Estimated Blood Loss 20 / 20 Urine Amount (Catheter) 860 / 860 475 / 475 Indwelling Temp Sensing 860 / 860 475 / 475 Catheter Other: Date of Last Bowel Movement 11/30/17 Weight On Admission 98.7 kg - Constitutional no acute distress, obese - Routine HEENT Exam Head: Present: normocephalic - Routine Respiratory Exam Present: CTA bilaterally - Routine Cardiovascular Exam Present: RRR - Routine Abdominal Exam Present: soft, normoactive bowel sounds - Routine Skin Exam Present: intact, dry - Routine Neurological Exam Present: alert, oriented X3 <Marlene Santillan - Last Filed: 12/20/17 10:02> Results - Labs CBC & Chem 7: 12/03/17 04:00 12/03/17 04:00 Labs: Laboratory Results - last 24 hr 12/02/17 12/03/17 12/03/17 08:15 04:00 04:00 WBC 8.3 RBC 3.61 L Hgb 11.1 L Hct 32.2 L MCV 89.2 MCH 30.7 MCHC 34.5 RDW 13.7 Plt Count 232 MPV 7.9 Sodium 139 Potassium 4.2 Chloride 104 Carbon Dioxide 22.8 Anion Gap 12 BUN 23 H Creatinine 1.52 H Estimated GFR 45 L Random Glucose 335 H D Calcium 7.1 L* D Prot Corrected Calcium 7.8 L Magnesium 1.9 Total Bilirubin 0.5 AST 12 L ALT 11 L Alkaline Phosphatase 67 Total Protein 5.8 L Albumin 3.1 L TSH 5.460 H <Pankaj Alcantar - Last Filed: 12/03/17 16:48> - Labs CBC & Chem 7: 12/04/17 13:49 12/04/17 13:49 Labs: Laboratory Results - last 24 hr 12/02/17 12/02/17 12/03/17 08:15 08:30 04:00 WBC 8.3 RBC 3.61 L Hgb 11.1 L Hct 32.2 L MCV 89.2 MCH 30.7 MCHC 34.5 RDW 13.7 Plt Count 232 MPV 7.9 Sodium Potassium Chloride Carbon Dioxide Anion Gap BUN Creatinine Estimated GFR Random Glucose Calcium Prot Corrected Calcium Magnesium 1.9 Total Bilirubin AST ALT Alkaline Phosphatase Total Protein Albumin TSH 5.460 H Blood Type O Negative Antibody Screen Negative MTS Gel Crossmatch See Detail 12/03/17 04:00 WBC RBC Hgb Hct MCV MCH MCHC RDW Plt Count MPV Sodium 139 Potassium 4.2 Chloride 104 Carbon Dioxide 22.8 Anion Gap 12 BUN 23 H Creatinine 1.52 H Estimated GFR 45 L Random Glucose 335 H D Calcium 7.1 L* D Prot Corrected Calcium 7.8 L Magnesium Total Bilirubin 0.5 AST 12 L ALT 11 L Alkaline Phosphatase 67 Total Protein 5.8 L Albumin 3.1 L TSH Blood Type Antibody Screen MTS Gel Crossmatch <Marlene Santillan - Last Filed: 12/20/17 10:02> Assessment and Plan - Plan Patient seen and examined Agree with above Continue with current supportive care Monitor labs Plan for an EGD tomorrow while on antiplatelet agents <Pankaj Alcantar - Last Filed: 12/03/17 16:48> - Plan - Hematemesis/ coffee ground emesis- hgb today is 11.1. Patient had 3 episodes of hematemesis this morning, started off with bright red then turned into coffee ground emesis. Pt is poor historian, endorses hx of gastric ulcer 10 yrs ago. Denies every having EGD/colonoscopy before. He has been constipated and feels some what bloated. Patient is s/p transcatheter aortic valve replacement (TAVR) which was preformed on 12/02/17. He is status post recent permanent pacemaker. He is on Aspirin and Plavix, per cardiology, pt must remain on these med - history of coronary artery disease and severe aortic valve stenosis.who was admitted for elective transcatheter aortic valve replacement (TAVR) which was preformed on 12/02/17. He is status post recent permanent pacemaker. Plan: - Clear liquid - Will start Protonix GTT - Pt must remain on Plavix and Aspirin per cardiology - EGD in the am - NPO mn - Start pt on bowel regimen for constipation - Monitor hh - Transfuse as needed - Supportive care - Notify GI for active bleed - Pt seen and examined by Dr. Alcantar and myself and this note is written on his behalf. <Marlene Santillan - Last Filed: 12/20/17 10:02>
[2017-12-03] MEDS: Ferrous Sulfate 325 MG Tablet PO SCH (10:26)
[2017-12-03] MEDS: Gabapentin 300 MG Capsule PO SCH ×3 (10:27→18:59)
[2017-12-03] MEDS: Docusate Sodium 100 MG Capsule PO SCH ×2 (10:27→21:16)
[2017-12-03] MEDS: Furosemide 40 MG Tablet PO SCH ×2 (10:28→21:16)
[2017-12-03] MEDS: Budesonide-Formoterol 160/4.5 MCG 6 GM Inhaler INH SCH ×2 (10:29→21:17)
[2017-12-03] MEDS: Bisacodyl 10 MG Supp RECTAL SCH (10:29)
[2017-12-03] MEDS: Sodium Chloride 0.9% 2 ML Flush BID IV.FLUSH SCH ×2 (10:30→21:17)
--- NOTE | 2017-12-03 12:42 | ECHRPT ---
Indication: HEART FAILURE CONCLUSIONS The left ventricular systolic function is hyperdynamic with an estimated ejection fraction in the ra nge of 65- 70%. Normal left ventricular size. Mild concentric left ventricular hypertrophy. No regional wall motion abnormalities are present. The aortic prosthesis is not well visualized. Mild aortic valve regurgitation. BP: / HR: Rhythm: Sinus MEASUREMENTS (Male / Female) Normal Values Technical Quality:Fair 2D ECHO LV Diastolic Diameter PLAX 5.5 cm 4.2 - 5.9 / 3.9 - 5.3 cm LV Systolic Diameter PLAX 3.7 cm IVS Diastolic Thickness 1.4 cm 0.6 - 1.0 / 0.6 - 0.9 cm LVPW Diastolic Thickness 1.4 cm 0.6 - 1.0 / 0.6 - 0.9 cm LV Relative Wall Thickness 0.5 M-MODE Aortic Root Diameter MM 2.1 cm AV Cusp Separation MM 1.3 cm DOPPLER AV Peak Velocity 222.0 cm/s AV Peak Gradient 19.7 mmHg AV Mean Gradient 12.0 mmHg AV Velocity Time Integral 48.5 cm AI Peak Velocity 251.5 cm/s AI Peak Gradient 25.3 mmHg AI Pressure Half Time 860.5 ms LVOT Peak Velocity 144.0 cm/s LVOT Peak Gradient 8.3 mmHg LVOT Velocity Time Integral 33.9 cm FINDINGS LEFT VENTRICLE The left ventricular systolic function is hyperdynamic with an estimated ejection fraction in the ra nge of 65- 70%. Normal left ventricular size. Mild concentric left ventricular hypertrophy. No regional wall motion abnormalities are present. RIGHT VENTRICLE Normal right ventricular size and systolic function. LEFT ATRIUM The left atrial size is normal. RIGHT ATRIUM The right atrial size is normal. ATRIAL SEPTUM Normal atrial septal thickness without atrial level shunting by limited color doppler interrogation. AORTA The aortic root and proximal ascending aorta are normal in size on limited imaging. MITRAL VALVE Structurally normal mitral valve. No mitral valve stenosis or regurgitation. AORTIC VALVE The aortic prosthesis is not well visualized. Aortic valve area is __ cm. Aortic valve mean gradient is 12 mmHg. TRICUSPID VALVE Structurally normal tricuspid valve. No tricuspid valve stenosis or regurgitation. PULMONARY VALVE The pulmonary valve is not well visualized. VESSELS The inferior vena cava is normal in size. PERICARDIUM No pericardial effusion. Blayne Petit MD, FACC (Electronically Signed) Final Date:03 December 2017 12:41
[2017-12-03] MEDS: Pantoprazole Inj 80 MG in Sodium Chlor 0.9% Inj 100 ML IV.CONT SCH ×2 (13:18→20:02)
[2017-12-03] MEDS ORDERED: Dextrose 50% in Water 50 ML Vial IV.PUSH PRN (17:23)
[2017-12-03] MEDS: Insulin NovoLIN Regular Correctional Sugar Inj SQ SCH (18:59)
[2017-12-03] MEDS ORDERED: Insulin Detemir Inj 1,000 UNIT/10 ML Vial SQ SCH (21:00)
[2017-12-04] MEDS: Insulin NovoLIN Regular Correctional Sugar Inj SQ SCH ×3 (05:40→12:35)
[2017-12-04] MEDS: Levothyroxine 75 MCG Tablet PO SCH (05:41)
[2017-12-04] MEDS: Pantoprazole Inj 80 MG in Sodium Chlor 0.9% Inj 100 ML IV.CONT SCH (06:48)
[2017-12-04] MEDS: Gabapentin 300 MG Capsule PO SCH ×2 (08:49→12:35)
[2017-12-04] MEDS: Docusate Sodium 100 MG Capsule PO SCH (08:49)
[2017-12-04] MEDS: Ferrous Sulfate 325 MG Tablet PO SCH (08:50)
[2017-12-04] MEDS: Bisacodyl 10 MG Supp RECTAL SCH (08:50)
[2017-12-04] MEDS: Sodium Chloride 0.9% 2 ML Flush BID IV.FLUSH SCH (08:51)
[2017-12-04] MEDS: Budesonide-Formoterol 160/4.5 MCG 6 GM Inhaler INH SCH (08:53)
[2017-12-04] MEDS ORDERED: Furosemide 40 MG Tablet PO SCH (09:00)
--- NOTE | 2017-12-04 10:04 | P.PNCV ---
- Note Subjective/Hospital Course: 77/ male seen by both Dr Montelongo and Dr Lazaro as an outpt , who presented with > 6 month symptoms of progressive dyspnea with minimal exertion. Echo revealed moderate to severe with mild LV dysfunction. 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 He then underwent EP study by Dr Lyons . Due to pt fragility and significant medical comorbidities, he was recommended for TAVR procedure IMPLANTED HARDWARE 11/23 The permanent pacemaker is a St ever. Model # GE7857, serial number [id number]. The right atrial pacing and sensing lead is a St Ever model number 2088TC-52, serial number [id number]. The right ventricular pacing and sensing lead is a St Ever model number 2088TC- 58, serial number [id number]. PMH: DM, , HLP. 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 This was associated with an episode of emesis this morning which appeared black and tarry. He did receive the Plavix loading post procedure yesterday. We will have GI evaluate. Keep n.p.o. for now Might need to have the pacemaker interrogated as well Greatly appreciate sweep molder input Keep in ICU for now Agree with trying to block his underlying barrow rhythm once the pacemaker is interrogated. 12/04 pacer adjusted by rep yesterday NPO for EGD today Objective: Vital Signs - 24 hr 12/03/17 11:00 12/03/17 15:00 12/03/17 19:00 Temperature 97.9 F 98.1 F 97.5 F L Pulse Rate 66 71 70 Respiratory Rate 18 18 16 Blood Pressure 131/70 159/61 H 152/66 H Pulse Oximetry 98 100 95 12/03/17 22:40 12/03/17 23:00 12/04/17 03:00 Temperature 97.8 F 97.6 F Pulse Rate 77 66 Respiratory Rate 16 16 Blood Pressure 114/56 L 100/52 L Pulse Oximetry 92 L 95 96 12/04/17 07:31 12/04/17 08:54 Temperature 97.5 F L Pulse Rate 60 Respiratory Rate 16 Blood Pressure 130/60 Pulse Oximetry 95 99 GENERAL: A&O x 3 SKIN: Warm and dry. both groin sites without any hematoma HEAD: Normocephalic. EYES: No scleral icterus. No injection or drainage. NECK: Supple, trachea midline. No JVD or lymphadenopathy. CARDIOVASCULAR: intermittent paced , without murmurs, gallops, or rubs. RESPIRATORY: Breath sounds equal bilaterally. No accessory muscle use. GASTROINTESTINAL: Abdomen soft, non-tender, nondistended. MUSCULOSKELETAL: No cyanosis, or edema. BACK: Nontender without obvious deformity. No CVA tenderness. Labs: Laboratory Results - last 12 hr 12/03/17 12/04/17 23:57 05:38 POC Glucose 174 H 118 H Result Diagrams: 12/03/17 04:00 12/03/17 04:00 Telemetry: intermittent paced - Plan (1) Status post transcatheter aortic valve replacement (TAVR) using bioprosthesis Plan: defer further plans and orders to Cardiology (2) Hematemesis Plan: for EGD today
[2017-12-04] MEDS ORDERED: Succinylcholine Inj 100 MG/5 ML Syringe IV.PUSH ONE (10:45)
[2017-12-04] MEDS ORDERED: Lidocaine PF 1% Inj 5 ML Syringe OTHER ONE (10:45)
[2017-12-04] MEDS ORDERED: Metoprolol Tartrate 25 MG Tablet PO ONE (11:00)
[2017-12-04] MEDS ORDERED: Sodium Chlor 0.9% Inj 500 ML IV.CONT ONE (11:00)
[2017-12-04] MEDS ORDERED: Chlorhexidine Gluconate 2% 1 Pack (2 Cloths) TOPICAL ONE (11:00)
--- NOTE | 2017-12-04 11:10 | P.PCN ---
Date of procedure: 12/04/17 Pre-op diagnosis: hematemesis, coffee-ground emesis Procedure: PROCEDURE PERFORMED EGD PROCEDURE: The procedure, risks and benefits were discussed with Patient/POA and informed consent was obtained. Anesthesia sedated Patient with Diprivan. Patient was placed in the left lateral decubitus position. EGD: The Pentax videoscope was introduced through the oropharynx and advanced to the second portion of the duodenum under direct visualization. Retroflexion was performed in the stomach. FINDINGS: The esophagus this was normal The stomach there was a small patch of erythema in the fundus of unclear significance possibly related to heaving nausea and vomiting and probable representing a small submucosal hemorrhage but otherwise gastric mucosa unremarkable no blood or bleeding The duodenum this was normal ESTIMATED BLOOD LOSS: None SPECIMENS REMOVED: None COMPLICATIONS: None IMPRESSION: Mild gastritis of the fundus of unclear significance otherwise normal PLAN: Advance diet Monitor labs and transfuse if needed Continue PPI Controlled diabetes, most likely cause of his nausea and vomiting was hyperglycemia May use Phenergan or Reglan as needed for nausea Anesthesia: NATY Surgeon: Pankaj Alcantar Condition: stable Disposition: floor
[2017-12-04 12:33] VITALS: RESP 16; TEMP 98.1; O2SAT 96
[2017-12-04] MEDS ORDERED: Levothyroxine 100 MCG Tablet PO SCH (12:45)
--- NOTE | 2017-12-04 12:45 | P.DS ---
Date of admission: 12/02/17 07:25 Primary care physician: No Primary Care Physician Attending physician on discharge: Blayne Petit Anticipated date of discharge: 12/04/17 Brief History from admission: This is a 77-year-old male with past medical history of diabetes mellitus, hypertension, hyperlipidemia, and coronary artery disease. Patient states he has had symptoms of progressive dyspnea over the course of the last 6 months. Patient underwent diagnostic coronary angiography with percutaneous coronary intervention using drug-eluting stent to the left anterior descending coronary artery. Transthoracic echocardiogram revealed severe aortic valve stenosis. Patient was referred for consideration of surgical aortic valve replacement but felt to be high surgical risk. Patient was referred for transcatheter aortic valve replacement. Patient is now admitted for elective procedure. DS: Diagnosis - Discharge Diagnosis (1) Severe aortic valve stenosis Status: Acute (2) Status post transcatheter aortic valve replacement (TAVR) using bioprosthesis Status: Acute (3) Acute on chronic diastolic (congestive) heart failure Status: Acute DS: Medications - Discharge Medications Prescriptions: aspirin 81 mg PO DAILY #30 tab ferrous sulfate [FeroSul] 325 mg PO DAILY #30 tab levothyroxine [Synthroid] 100 mcg PO DAILY@0600 #30 tab losartan 50 mg PO DAILY #30 tab DS: Summary Hospital Course: patient is status post transcatheter aortic valve replacement did well immediately post procedure had one episode of "coffee ground emesis". no significant drop in Hb GI consulted. EGD showed only mild gastritis. patient would like to go home today no arrhythmia - Time Spent with Patient Total time spent providing and/or coordinating discharge services: Greater than 30 minutes - Quality: VTE Deep Vein Thrombosis/Pulmonary Embolism Present on Admission: No Exam Vital signs: Vital Signs 12/03/17 15:00 12/03/17 19:00 12/03/17 22:40 Temperature 98.1 F 97.5 F L Pulse Rate 71 70 Respiratory Rate 18 16 Blood Pressure 159/61 H 152/66 H Pulse Oximetry 100 95 92 L 12/03/17 23:00 12/04/17 03:00 12/04/17 07:00 Temperature 97.8 F 97.6 F Pulse Rate 77 66 60 Respiratory Rate 16 16 Blood Pressure 114/56 L 100/52 L Pulse Oximetry 95 96 12/04/17 07:31 12/04/17 08:00 12/04/17 08:54 Temperature 97.5 F L Pulse Rate 60 64 Respiratory Rate 16 Blood Pressure 130/60 Pulse Oximetry 95 99 12/04/17 09:00 12/04/17 10:00 12/04/17 11:00 Temperature Pulse Rate 66 66 68 Respiratory Rate Blood Pressure Pulse Oximetry 12/04/17 11:09 12/04/17 11:15 12/04/17 12:22 Temperature 98 F 98.1 F Pulse Rate 60 61 61 Respiratory Rate 20 15 16 Blood Pressure 104/53 L 108/53 L 139/60 Pulse Oximetry 100 97 96 Intake & Output 12/03/17 12/04/17 12/04/17 18:59 06:59 18:59 Intake Total 490 / 490 421 / 421 100 / 100 Output Total 975 / 975 175 / 175 Balance -485 / -485 246 / 246 100 / 100 Weight 100 kg Intake: IV 250 / 250 200 / 200 Cordarone Inj 450 MG In D5W Inj 250 / 250 241 ML @ 1 MG/MIN 33.33 mls/hr IV.CONT TITRATE PRN Rx#: [id number] Protonix Inj 80 MG In NS Inj 200 / 200 100 ML @ 10 mls/hr IV.CONT CONT FABIAN Rx#:[id number] Oral 240 / 240 221 / 221 Anesthesia Amount 100 / 100 Output: Urine 675 / 675 175 / 175 Emesis 300 / 300 Other: # Voids 1 Date of Last Bowel Movement 12/03/17 12/04/17 # Bowel Movements 1 # Emeses 3 - Constitutional no acute distress - Routine HEENT Exam Head: Present: normocephalic, atraumatic Eye: Present: EOMI, PERRL ENT: Present: mucous membranes dry - Routine Neck Exam Absent: JVD - Routine Cardiovascular Exam Present: RRR. Absent: murmur - Routine Abdominal Exam Present: soft, normoactive bowel sounds - Routine Extremities Exam Absent: edema - Routine Neurological Exam Present: alert, oriented X3, CN II-XII intact. Absent: sensory deficit, motor deficit Results Procedures completed during hospitalization: transcatheter aortic valve replacement EGD Labs on day of discharge: Labs from last 24 hours 12/04/17 12/04/17 12/03/17 11:29 05:38 23:57 POC Glucose 140 H 118 H 174 H 12/03/17 17:44 POC Glucose 466 H* Discharge Plan - Discharge Disposition Patient Disposition: 01 Discharge Home - Discharge Condition Condition: Good - Discharge Order Discharge Orders: Discharge Order (Routine); Ordered 12/04/17 Ordered By: Blayne Petit Cardiology Clear for Discharge (Routine); Ordered 12/04/17 Ordered By: Blayne Petit - Discharge Details Anticipated Discharge Date: 12/04/17 - Physicians Team Primary Care Provider: Primary Care Jorge L,Fatuma Attending Provider: Blayne Petit Other Providers: Otilia Montelongo MD ; ; Ed Ramirez MD ; Pankaj Alcantar MD - Rxs /Orders / Referrals /Forms Prescriptions: New aspirin 81 mg Tablet,Chewable 81 mg PO DAILY Qty: 30 RF: 11 ferrous sulfate [FeroSul] 325 mg (65 mg iron) Tablet 325 mg PO DAILY Qty: 30 RF: 6 furosemide 40 mg Tablet 40 mg PO DAILY RF: 0 levothyroxine [Synthroid] 75 mcg Tablet 100 mcg PO DAILY@0600 Qty: 30 RF: 1 losartan 50 mg Tablet 50 mg PO DAILY Qty: 30 RF: 3 Continue budesonide-formoterol [Symbicort] 160-4.5 mcg/actuation Hfa Aerosol Inhaler 2 puff INHALATION BID clopidogrel [Plavix] 75 mg Tablet 75 mg PO DAILY gabapentin 300 mg Capsule 300 mg PO TID hydrocodone-acetaminophen [[place]] 5-325 mg Tablet 1 tab PO Q6H PRN (Reason: Pain) Qty: 20 RF: 0 insulin detemir U-100 [Levemir FlexTouch U-100 Insuln] 100 unit/mL (3 mL) Insulin Pen unit SUB-Q QPM insulin lispro [Humalog KwikPen Insulin] 100 unit/mL Insulin Pen unit SUB-Q QAM metformin 1,000 mg Tablet 1,000 mg PO BID pantoprazole [Protonix] 40 mg Tablet,Delayed Release (Dr/Ec) 40 mg PO DAILY Discontinued amlodipine 10 mg Tablet 5 mg PO DAILY cilostazol 100 mg Tablet 100 mg PO BID furosemide [Lasix] 40 mg Tablet 40 mg PO BID levothyroxine 75 mcg Tablet 75 mcg PO DAILY losartan 100 mg Tablet 100 mg PO DAILY Referrals: UNKNOWN, [Non-Staff] - See Instructions - Discharge Instructions Patient Printed Instructions: Transcatheter Aortic Valve Replacement (DC) Additional Instructions: Please call your PCP and make follow up appointment for next one to two weeks. Call Sadye Dae, RN Structural Bench Molder with any questions or concerns. Follow up appts as follows: 30-day TAVR follow up 01/04/[address] Teddy Scott [address] [place] [address] 1 year TAVR follow up 12/02/[address] Teddy Scott [address] [place] [address]
[2017-12-04 14:08] LABS: Hematocrit 32.7 % (39.0-51.0); Hemoglobin 11.1 gm/dL (13.0-17.0); Mean Corpuscular HGB Conc 33.8 % (32.0-36.0); Mean Corpuscular Hemoglobin 30.8 pg (27.0-34.0); Mean Platelet Volume 7.6 fL (7.0-11.0); Platelet Count 207 th/mm3 (150-450); Red Blood Count 3.59 mil/mm3 (4.50-5.90); Red Cell Distribution Width 14.1 % (11.6-17.2); White Blood Count 8.1 th/mm3 (4.0-11.0)
--- NOTE | 2017-12-04 14:20 | P.DCO ---
- Diagnosis (1) Pacemaker Status: Acute (2) Severe aortic valve stenosis Status: Acute (3) Status post transcatheter aortic valve replacement (TAVR) using bioprosthesis Status: Acute (4) Acute on chronic diastolic (congestive) heart failure Status: Acute (5) Hematemesis Status: Acute - Physical Therapy Order: Evaluate and treat - Home Health Nursing Order: Signs/symptoms of disease process, CHF education, Wound care and dressing changes, Nursing assessment with vital signs - Case Management Consult Yes - Certification I have seen patient Jake Washburn on 12/04/17. My clinical findings support the need for the requested home health care services because: Limited mobility due to disease progression, Deconditioned with increased weakness, High risk of falls I certify that my clinical findings support that this patient is homebound because: Post-op weakness, Unsteady gait/balance
[2017-12-04 14:22] LABS: Calcium 7.7 mg/dL (8.5-10.1); Carbon Dioxide 27.6 meq/L (21.0-32.0); Potassium 4.1 meq/L (3.5-5.1)
[2017-12-04 14:54] VITALS: BP 135/63
[2017-12-04 16:53] VITALS: PULSE 84
[2017-12-04] MEDS ORDERED: Gabapentin 300 MG Capsule PO SCH (18:00)
[2017-12-05] MEDS ORDERED: Gabapentin 300 MG Capsule PO SCH (09:00)
== END 2017-12-04 16:10 | disposition home health service (06) ==
LOC: EDBD → HSDI 07:25 → HDIC 07:28 → HCVI 14:03 → HCPC 12-03 11:51
PROVIDERS: ADMIT Internal Medicine; ATTEND Internal Medicine
PROC: TAVRHYB (ICD-10-PCS; 2017-12-02 12:30)
PROC: PANENDO (2017-12-04 10:45)